=== PATIENT | female | born 1940 | race Two or more races ===

== ENCOUNTER → 2016-09-11 | Outpatient (CLI) | payer OTHER ==
[~2016-09-11] MED LIST: ASPI81TA27 PO; BACL20TA PO; LOSA50TA6 PO; PANT40TA2 PO; PIRO-23 PO; TRAM50TA2 PO
[2016-09-11 09:20] LABS: Basophils # (auto) 0.1 uL; Basophils % (auto) 0.8 % (0.0-2.0); Eosinophils # (auto) 0.2 uL; Eosinophils % (auto) 2.6 % (0.0-7.0); Hematocrit 42.7 % (36.0-46.0); Hemoglobin 14.1 g/dL (12.2-16.2); Lymphocytes # (auto) 3.6 uL; Lymphocytes % (auto) 49.8 % (10.0-50.0); Mean Corpuscular Hemoglobin 28.9 pg (28.0-32.0); Mean Corpuscular Volume 87.6 fL (80.0-100.0); Mean Platelet Volume 7.6 fL (7.4-10.4); Monocytes # (auto) 0.5 uL; Monocytes % (auto) 6.6 % (0.0-12.0); Neutrophils # (auto) 2.9 uL; Neutrophils % (auto) 40.2 % (37.0-80.0); Platelet Count (auto) 307 10^3/uL (140-450); Red Cell Distribution Width 14.6 % (11.6-16.0); White Blood Cell 7.3 10^3/uL (4.4-10.8)
[2016-09-11 09:26] LABS: Albumin 3.3 g/dL (3.4-5.0); Calcium 8.3 mg/dL (8.5-10.1); Potassium 4.1 mmol/L (3.5-5.1)
[2016-09-11 09:28] LABS: BUN/Creatinine Ratio 12.5
[2016-09-11 09:31] LABS: Bilirubin, Total 0.4 mg/dL (0.2-1.0); Total Protein 7.5 g/dL (6.4-8.2)
[2016-09-11 10:03] LABS: Urine Bilirubin Negative (Negative); Urine Blood Negative /uL (Negative); Urine Color Yellow (Yellow); Urine Glucose Normal (Normal); Urine Ketone Negative (Negative); Urine Mucus FEW (None Seen); Urine Nitrite Negative (Negative); Urine RBC <1 /hpf (0 - 4); Urine Squamous Epithelial Cell MOD /hpf (<5); Urine Urobilinogen Normal (Negative); Urine pH 6.5 (5.0-8.0)
== END | disposition home or self-care (01) ==
LOC: LAB 08:13
DX: I10 Essential (primary) hypertension (principal)
CPT/HCPCS: 36415; 80053; 80061; 81001; 84443; 85025

== ENCOUNTER 2017-02-25 07:39 | Day surgery (SDC) | payer OTHER ==
[2017-02-21 11:19] LABS: Basophils # (auto) 0.1 uL; Basophils % (auto) 0.9 % (0.0-2.0); Eosinophils # (auto) 0.1 uL; Eosinophils % (auto) 1.8 % (0.0-7.0); Hematocrit 44.2 % (36.0-46.0); Hemoglobin 14.7 g/dL (12.2-16.2); Lymphocytes # (auto) 3.4 uL; Lymphocytes % (auto) 44.5 % (10.0-50.0); Mean Corpuscular Hemoglobin 30.2 pg (28.0-32.0); Mean Corpuscular Hgb Conc. 33.4 g/dL (32.0-36.0); Mean Corpuscular Volume 90.4 fL (80.0-100.0); Mean Platelet Volume 6.8 fL (6.9-10.8); Monocytes # (auto) 0.6 uL; Monocytes % (auto) 7.9 % (0.0-12.0); Neutrophils # (auto) 3.5 uL; Neutrophils % (auto) 44.9 % (37.0-80.0); Nucleated Red Blood Cells % 0.1 %; Platelet Count (auto) 257 10^3/uL (140-450); Red Cell Distribution Width 14.5 % (11.8-14.3); White Blood Cell 7.7 10^3/uL (4.4-10.8)
[2017-02-21 11:36] LABS: INR 0.91 (0.9-1.15); Partial Thromboplastin Time 27.3 sec (22.64-33.71); Prothrombin Time 9.9 sec (9.37-12.3)
[~2017-02-25] VITALS: Ht 152.4 cm; Wt 77.6 kg
[~2017-02-25 07:39] MED LIST changes: -BACL20TA PO; +GABA100C PO; -PIRO-23 PO
[2017-02-25] MEDS ORDERED: LIDOCAINE VISCOUS 2% 15ML UD ONE (08:15)
[2017-02-25] MEDS ORDERED: SODIUM CHLORIDE LOCK 10 ML ONE (08:15)
[2017-02-25] MEDS ORDERED: diphenhdrAMINE HCL 50 MG/1 ML VL ONE (08:15)
[2017-02-25] MEDS ORDERED: MIDAZOLAM HCL 5 MG/ML-1ML VIAL ONE (08:15)
[2017-02-25] MEDS ORDERED: fentaNYL CITRATE 100 MCG/2 ML VL ONE (08:16)
[2017-02-25] MEDS ORDERED: FLUMAZENIL 0.1 MG/ML INJ 10ML MDV IV ONE (08:30)
[2017-02-25] MEDS ORDERED: NALOXONE HCL 0.4 MG/ML VIAL ONE (08:30)
[2017-02-25 09:52] VITALS: BP 114/69
== END 2017-02-25 10:05 | disposition home or self-care (01) ==
LOC: GI 07:39
PROVIDERS: ATTEND Internal Medicine Gastroenterology
DX: K29.50 Unspecified chronic gastritis without bleeding (principal); E66.9 Obesity, unspecified; Z90.710 Acquired absence of both cervix and uterus; Z90.721 Acquired absence of ovaries, unilateral; Z90.49 Acquired absence of other specified parts of digestive tract
CPT/HCPCS: 36415; 43239; 85025; 85610; 85730; J2250; J3010; J7030

== ENCOUNTER → 2017-06-05 | Outpatient (CLI) | payer OTHER ==
[~2017-06-05] MED LIST changes: +DOBUTamine 1000MCG/ML 250 ML IV ONE; +OPTISON 3ml Vial for INJ IV ONE
== END | disposition home or self-care (01) ==
LOC: XYW 11:19
PROVIDERS: ATTEND Internal Medicine Cardiovascular Disease
DX: R07.89 Other chest pain (principal)
CPT/HCPCS: 93017; 93306; J1250; Q9956

== ENCOUNTER → 2017-06-18 | Outpatient (CLI) | payer OTHER ==
[~2017-06-18] MED LIST changes: -DOBUTamine 1000MCG/ML 250 ML IV ONE; -OPTISON 3ml Vial for INJ IV ONE
[2017-06-18 14:14] LABS: Basophils # (auto) 0 uL; Basophils % (auto) 0.5 % (0.0-2.0); Eosinophils # (auto) 0.1 uL; Eosinophils % (auto) 1.2 % (0.0-7.0); Hematocrit 40.6 % (36.0-46.0); Hemoglobin 13.4 g/dL (12.2-16.2); Lymphocytes # (auto) 3.3 uL; Lymphocytes % (auto) 40.4 % (10.0-50.0); Mean Corpuscular Hemoglobin 29.3 pg (28.0-32.0); Mean Corpuscular Hgb Conc. 33.1 g/dL (32.0-36.0); Mean Corpuscular Volume 88.7 fL (80.0-100.0); Monocytes # (auto) 0.4 uL; Monocytes % (auto) 5.3 % (0.0-12.0); Neutrophils # (auto) 4.2 uL; Neutrophils % (auto) 52.6 % (37.0-80.0); Platelet Count (auto) 281 10^3/uL (140-450); Red Blood Cells 4.58 10^6/uL (4.0-5.20); Red Cell Distribution Width 14.9 % (11.8-14.3)
[2017-06-18 14:28] LABS: INR 0.92 (0.9-1.15); Partial Thromboplastin Time 25.8 sec (22.64-33.71)
[2017-06-18 15:09] LABS: Albumin 3.2 g/dL (3.4-5.0); BUN/Creatinine Ratio 17.5; Calcium 8.7 mg/dL (8.5-10.1); Potassium 3.8 mmol/L (3.5-5.1)
[2017-06-18 15:12] LABS: Bilirubin, Total 0.3 mg/dL (0.2-1.0); Total Protein 7.6 g/dL (6.4-8.2)
== END | disposition home or self-care (01) ==
LOC: LAB 13:33
PROVIDERS: ATTEND Family Medicine
DX: Z01.812 Encounter for preprocedural laboratory examination (principal); H02.403 Unspecified ptosis of bilateral eyelids
CPT/HCPCS: 36415; 80053; 85025; 85610; 85730

== ENCOUNTER → 2017-09-09 | Day surgery (SDC) | payer OTHER ==
[2017-09-06 14:17] LABS: Basophils # (auto) 0.1 uL; Basophils % (auto) 0.7 % (0.0-2.0); Eosinophils # (auto) 0.1 uL; Eosinophils % (auto) 1.6 % (0.0-7.0); Hematocrit 41.8 % (36.0-46.0); Lymphocytes # (auto) 3.2 uL; Lymphocytes % (auto) 42.9 % (10.0-50.0); Mean Corpuscular Hemoglobin 30.2 pg (28.0-32.0); Mean Corpuscular Hgb Conc. 33.6 g/dL (32.0-36.0); Mean Corpuscular Volume 89.8 fL (80.0-100.0); Monocytes # (auto) 0.4 uL; Monocytes % (auto) 5.7 % (0.0-12.0); Neutrophils # (auto) 3.6 uL; Neutrophils % (auto) 49.1 % (37.0-80.0); Nucleated Red Blood Cells % 0.2 %; Platelet Count (auto) 275 10^3/uL (140-450); Red Blood Cells 4.66 10^6/uL (4.0-5.20); Red Cell Distribution Width 14.3 % (11.8-14.3); White Blood Cell 7.4 10^3/uL (4.4-10.8)
[2017-09-06 14:20] LABS: INR 0.88 (0.9-1.15); Partial Thromboplastin Time 27.8 sec (22.64-33.71); Prothrombin Time 9.6 sec (9.37-12.3)
[~2017-09-09] VITALS: Ht 144.8 cm; Wt 78.9 kg
[~2017-09-09] MED LIST changes: +FLUMAZENIL 0.1 MG/ML INJ 10ML MDV IV ONE; +LIDOCAINE VISCOUS 2% 15ML UD ONE; +NALOXONE HCL 0.4 MG/ML VIAL ONE; +diphenhdrAMINE HCL 50 MG/1 ML VL ONE
[2017-09-09] MEDS: fentaNYL CITRATE 100 MCG/2 ML VL ONE ×2 (09:15→09:18)
[2017-09-09] MEDS: MIDAZOLAM HCL 5 MG/ML-1ML VIAL ONE ×2 (09:15→09:18)
[2017-09-09 09:57] VITALS: BP 127/77
== END | disposition home or self-care (01) ==
LOC: GI 08:05
PROVIDERS: ATTEND Internal Medicine Gastroenterology
DX: K29.50 Unspecified chronic gastritis without bleeding (principal); R13.10 Dysphagia, unspecified; E66.9 Obesity, unspecified; Z68.37 Body mass index [BMI] 37.0-37.9, adult; Z88.5 Allergy status to narcotic agent; Z88.8 Allergy status to other drugs, medicaments and biological substances; Z88.0 Allergy status to penicillin; Z90.710 Acquired absence of both cervix and uterus; Z90.721 Acquired absence of ovaries, unilateral; Z90.49 Acquired absence of other specified parts of digestive tract; I10 Essential (primary) hypertension; Z88.1 Allergy status to other antibiotic agents
CPT/HCPCS: 36415; 43239; 43248; 85025; 85610; 85730; 88305; 88342; J2250; J2310; J3010

== ENCOUNTER → 2018-07-21 | Outpatient (CLI) | payer OTHER ==
[~2018-07-21] MED LIST changes: -FLUMAZENIL 0.1 MG/ML INJ 10ML MDV IV ONE; -LIDOCAINE VISCOUS 2% 15ML UD ONE; +LOSA-46 PO; -LOSA50TA6 PO; -NALOXONE HCL 0.4 MG/ML VIAL ONE; -diphenhdrAMINE HCL 50 MG/1 ML VL ONE
[2018-07-21 10:27] LABS: Basophils # (auto) 0.1 uL; Basophils % (auto) 0.9 % (0.0-2.0); Eosinophils # (auto) 0.2 uL; Eosinophils % (auto) 2.5 % (0.0-7.0); Hematocrit 42.5 % (36.0-46.0); Hemoglobin 14.1 g/dL (12.2-16.2); Lymphocytes # (auto) 2.8 uL; Lymphocytes % (auto) 43.4 % (10.0-50.0); Mean Corpuscular Hemoglobin 29.7 pg (28.0-32.0); Mean Corpuscular Hgb Conc. 33.2 g/dL (32.0-36.0); Mean Corpuscular Volume 89.6 fL (80.0-100.0); Monocytes # (auto) 0.5 uL; Monocytes % (auto) 7.1 % (0.0-12.0); Neutrophils % (auto) 46.1 % (37.0-80.0); Nucleated Red Blood Cells % 0.2 %; Platelet Count (auto) 278 10^3/uL (140-450); Red Blood Cells 4.74 10^6/uL (4.0-5.20); Red Cell Distribution Width 14.4 % (11.8-14.3); White Blood Cell 6.5 10^3/uL (4.4-10.8)
[2018-07-21 10:58] LABS: Albumin 3.3 g/dL (3.4-5.0); Calcium 8.8 mg/dL (8.5-10.1); Potassium 4.1 mmol/L (3.5-5.1)
[2018-07-21 11:05] LABS: BUN/Creatinine Ratio 15.3; Bilirubin, Total 0.4 mg/dL (0.2-1.0); Total Protein 7.6 g/dL (6.4-8.2)
== END | disposition home or self-care (01) ==
LOC: LAB 09:33
PROVIDERS: ATTEND Internal Medicine
DX: Z12.11 Encounter for screening for malignant neoplasm of colon (principal); I10 Essential (primary) hypertension; Z83.3 Family history of diabetes mellitus
CPT/HCPCS: 36415; 80053; 80061; 82274; 82306; 83036; 84443; 85025

== ENCOUNTER → 2019-10-08 | Emergency (ER) | payer OTHER ==
[~2019-10-08] VITALS: Ht 152.4 cm; Wt 77.1 kg
[~2019-10-08] MED LIST changes: +ASPI-543 PO; -ASPI81TA27 PO; -LOSA-46 PO; +LOSA-69 PO
[2019-10-08 20:10] VITALS: BP 150/87
== END | disposition home or self-care (01) ==
LOC: ER 18:14
DX: M48.02 Spinal stenosis, cervical region (principal); Z90.49 Acquired absence of other specified parts of digestive tract; Z90.710 Acquired absence of both cervix and uterus; Z87.311 Personal history of (healed) other pathological fracture
CPT/HCPCS: 72125

== ENCOUNTER 2020-08-14 14:47 | Emergency (ER) | payer OTHER ==
[~2020-08-14] VITALS: Ht 152.4 cm; Wt 79.8 kg
[2020-08-14 14:50] VITALS: BP 183/78
[2020-08-14 15:30] LABS: Basophils # (auto) 0.1 10 ^3/uL (0-0.2); Basophils % (auto) 0.7 % (0.0-2.0); Eosinophils # (auto) 0.1 10 ^3/uL (0-0.8); Eosinophils % (auto) 1.4 % (0.0-7.0); Hematocrit 40.6 % (36.0-46.0); Hemoglobin 13.8 g/dL (12.2-16.2); Lymphocytes # (auto) 2.2 10 ^3/uL (0.4-5.4); Lymphocytes % (auto) 27.5 % (10.0-50.0); Mean Corpuscular Hemoglobin 30.4 pg (28.0-32.0); Mean Corpuscular Hgb Conc. 34.1 g/dL (32.0-36.0); Mean Corpuscular Volume 89.2 fL (80.0-100.0); Monocytes # (auto) 0.4 10 ^3/uL (0-1.3); Monocytes % (auto) 4.4 % (0.0-12.0); Neutrophils # (auto) 5.3 10 ^3/uL (1.6-8.6); Nucleated Red Blood Cells % 0.2 %; Platelet Count (auto) 265 10^3/uL (140-450); Red Blood Cells 4.55 10^6/uL (4.0-5.20); Red Cell Distribution Width 14.6 % (11.8-14.3)
[2020-08-14 15:52] LABS: Alanine Aminotransferase 20 U/L (13-56); Albumin 3.5 g/dL (3.4-5.0); Anion Gap 10 (5-15); Aspartate Aminotransferase 20 U/L (15-37); BUN/Creatinine Ratio 18.5; Blood Urea Nitrogen 12 mg/dL (7-18); Calcium 8.4 mg/dL (8.5-10.1); Carbon Dioxide 22 mmol/L (21-32); Chloride 107 mmol/L (98-107); GFR African American 113 mL/min; GFR Non-African American 93 mL/min; Glucose 121 mg/dL (74-106); Potassium 3.9 mmol/L (3.5-5.1); Sodium 139 mmol/L (136-145)
[2020-08-14 15:57] LABS: Alkaline Phosphatase 92 U/L (45-117); Bilirubin, Total 0.2 mg/dL (0.2-1.0)
[2020-08-14 16:24] LABS: Urine Bacteria NONE SEEN /hpf (None Seen); Urine Blood Negative /uL (Negative); Urine Specific Gravity 1.006 (1.001-1.035); Urine WBC <1 /hpf (0 - 5)
== END 2020-08-14 17:24 | disposition home or self-care (01) ==
LOC: ER 14:47
DX: R07.89 Other chest pain (principal); R42 Dizziness and giddiness; I10 Essential (primary) hypertension; F41.9 Anxiety disorder, unspecified; Z90.49 Acquired absence of other specified parts of digestive tract; Z90.710 Acquired absence of both cervix and uterus; Z79.82 Long term (current) use of aspirin; Z88.1 Allergy status to other antibiotic agents; Z88.0 Allergy status to penicillin; Z20.822 Contact with and (suspected) exposure to COVID-19
CPT/HCPCS: 36415; 70450; 71045; 80053; 81001; 84484; 85025; 87426; 93005

== ENCOUNTER → 2020-08-17 | Outpatient (CLI) | payer OTHER ==
[2020-08-17 09:28] LABS: Basophils # (auto) 0.1 10 ^3/uL (0-0.2); Basophils % (auto) 1.2 % (0.0-2.0); Eosinophils # (auto) 0.3 10 ^3/uL (0-0.8); Eosinophils % (auto) 4.5 % (0.0-7.0); Hematocrit 41.1 % (36.0-46.0); Hemoglobin 13.9 g/dL (12.2-16.2); Mean Corpuscular Hemoglobin 30.3 pg (28.0-32.0); Mean Corpuscular Hgb Conc. 33.7 g/dL (32.0-36.0); Mean Corpuscular Volume 89.8 fL (80.0-100.0); Monocytes # (auto) 0.4 10 ^3/uL (0-1.3); Monocytes % (auto) 6.6 % (0.0-12.0); Neutrophils # (auto) 2.8 10 ^3/uL (1.6-8.6); Neutrophils % (auto) 42.7 % (37.0-80.0); Nucleated Red Blood Cells % 0.1 %; Platelet Count (auto) 278 10^3/uL (140-450); Red Blood Cells 4.58 10^6/uL (4.0-5.20); Red Cell Distribution Width 14.7 % (11.8-14.3); White Blood Cell 6.6 10^3/uL (4.4-10.8)
[2020-08-17 10:21] LABS: Albumin 3.4 g/dL (3.4-5.0); Calcium 8.9 mg/dL (8.5-10.1); Potassium 4.4 mmol/L (3.5-5.1)
[2020-08-17 10:25] LABS: BUN/Creatinine Ratio 20.6; Bilirubin, Total 0.5 mg/dL (0.2-1.0); Total Protein 7.7 g/dL (6.4-8.2)
== END | disposition home or self-care (01) ==
LOC: LAB 09:10
PROVIDERS: ATTEND Internal Medicine
DX: Z12.11 Encounter for screening for malignant neoplasm of colon (principal); Z00.00 Encounter for general adult medical examination without abnormal findings; I10 Essential (primary) hypertension; E55.9 Vitamin D deficiency, unspecified
CPT/HCPCS: 36415; 80053; 80061; 82274; 82306; 84439; 84443; 85025

== ENCOUNTER → 2021-06-08 | Outpatient (CLI) | payer OTHER ==
[2021-06-08 10:50] LABS: Basophils # (auto) 0.1 10 ^3/uL (0-0.2); Basophils % (auto) 2.2 % (0.0-2.0); Eosinophils # (auto) 0.1 10 ^3/uL (0-0.8); Eosinophils % (auto) 1.9 % (0.0-7.0); Hematocrit 39.9 % (36.0-46.0); Hemoglobin 13.4 g/dL (12.2-16.2); Lymphocytes % (auto) 39.7 % (10.0-50.0); Mean Corpuscular Hemoglobin 29.8 pg (28.0-32.0); Mean Corpuscular Hgb Conc. 33.6 g/dL (32.0-36.0); Mean Corpuscular Volume 88.7 fL (80.0-100.0); Monocytes # (auto) 0.3 10 ^3/uL (0-1.3); Monocytes % (auto) 5.9 % (0.0-12.0); Neutrophils # (auto) 2.5 10 ^3/uL (1.6-8.6); Neutrophils % (auto) 50.3 % (37.0-80.0); Nucleated Red Blood Cells % 0.1 %; Red Cell Distribution Width 14.1 % (11.8-14.3); White Blood Cell 4.9 10^3/uL (4.4-10.8)
[2021-06-08 11:08] LABS: Urine Bacteria NONE SEEN /hpf (None Seen); Urine Blood Negative /uL (Negative); Urine Specific Gravity 1.014 (1.001-1.035); Urine WBC <1 /hpf (0 - 5)
[2021-06-08 11:58] LABS: Potassium 3.8 mmol/L (3.5-5.1)
[2021-06-08 12:17] LABS: Albumin 3.3 g/dL (3.4-5.0); BUN/Creatinine Ratio 15.3; Bilirubin, Total 0.5 mg/dL (0.2-1.0); Calcium 8.5 mg/dL (8.5-10.1); Total Protein 7.8 g/dL (6.4-8.2)
== END | disposition home or self-care (01) ==
LOC: LAB 09:49
PROVIDERS: ATTEND Internal Medicine
DX: I10 Essential (primary) hypertension (principal)
CPT/HCPCS: 36415; 80053; 80061; 81001; 84439; 84443; 85025; 85652

== ENCOUNTER → 2022-03-16 | Outpatient (CLI) | payer OTHER ==
[2022-03-16 13:46] LABS: Basophils # (auto) 0.1 10 ^3/uL (0-0.2); Basophils % (auto) 0.8 % (0.0-2.0); Eosinophils # (auto) 0.1 10 ^3/uL (0-0.8); Eosinophils % (auto) 1.1 % (0.0-7.0); Lymphocytes % (auto) 39.6 % (10.0-50.0); Mean Corpuscular Hemoglobin 29.6 pg (28.0-32.0); Mean Corpuscular Hgb Conc. 33.3 g/dL (32.0-36.0); Mean Corpuscular Volume 88.8 fL (80.0-100.0); Monocytes # (auto) 0.5 10 ^3/uL (0-1.3); Monocytes % (auto) 6.8 % (0.0-12.0); Neutrophils % (auto) 51.7 % (37.0-80.0); Nucleated Red Blood Cells % 0.2 %; Red Blood Cells 4.39 10^6/uL (4.0-5.20); Red Cell Distribution Width 14.2 % (11.8-14.3); White Blood Cell 7.7 10^3/uL (4.4-10.8)
[2022-03-16 14:21] LABS: Albumin 3.4 g/dL (3.4-5.0); Calcium 8.7 mg/dL (8.5-10.1); Potassium 4.2 mmol/L (3.5-5.1)
[2022-03-16 14:25] LABS: BUN/Creatinine Ratio 15.1; Bilirubin, Total 0.3 mg/dL (0.2-1.0); Total Protein 7.6 g/dL (6.4-8.2)
== END | disposition home or self-care (01) ==
LOC: LAB 13:26
PROVIDERS: ATTEND Internal Medicine
DX: F33.1 Major depressive disorder, recurrent, moderate (principal)
CPT/HCPCS: 36415; 80053; 84439; 84443; 85025

== ENCOUNTER → 2022-09-17 | Outpatient (CLI) | payer OTHER ==
[2022-09-17 10:13] LABS: Basophils # (auto) 0.1 10 ^3/uL (0-0.2); Basophils % (auto) 0.9 % (0.0-2.0); Eosinophils # (auto) 0.3 10 ^3/uL (0-0.8); Eosinophils % (auto) 3.8 % (0.0-7.0); Hematocrit 41.4 % (36.0-46.0); Hemoglobin 13.7 g/dL (12.2-16.2); Lymphocytes # (auto) 2.9 10 ^3/uL (0.4-5.4); Lymphocytes % (auto) 42.4 % (10.0-50.0); Mean Corpuscular Hemoglobin 29.4 pg (28.0-32.0); Mean Corpuscular Hgb Conc. 33.1 g/dL (32.0-36.0); Mean Corpuscular Volume 88.6 fL (80.0-100.0); Monocytes # (auto) 0.5 10 ^3/uL (0-1.3); Monocytes % (auto) 7.5 % (0.0-12.0); Neutrophils # (auto) 3.1 10 ^3/uL (1.6-8.6); Neutrophils % (auto) 45.4 % (37.0-80.0); Nucleated Red Blood Cells % 0.1 %; Red Blood Cells 4.67 10^6/uL (4.0-5.20); Red Cell Distribution Width 13.4 % (11.8-14.3); White Blood Cell 6.8 10^3/uL (4.4-10.8)
[2022-09-17 10:54] LABS: Urine Bacteria NONE SEEN /hpf (None Seen); Urine Blood Negative /uL (Negative); Urine Specific Gravity 1.011 (1.001-1.035); Urine WBC <1 /hpf (0 - 5)
[2022-09-17 11:03] LABS: Albumin 3.2 g/dL (3.4-5.0); Calcium 9.2 mg/dL (8.5-10.1); Potassium 4.1 mmol/L (3.5-5.1)
[2022-09-17 11:11] LABS: BUN/Creatinine Ratio 22.5 (10.0-20.0); Bilirubin, Total 0.3 mg/dL (0.2-1.0); Total Protein 7.7 g/dL (6.4-8.2)
[2022-09-17 12:11] LABS: Free T4 (Free Thyroxine) 0.96 ng/dL (0.89-1.76)
== END | disposition home or self-care (01) ==
LOC: LAB 09:35
PROVIDERS: ATTEND Internal Medicine
DX: I10 Essential (primary) hypertension (principal); E55.9 Vitamin D deficiency, unspecified
CPT/HCPCS: 36415; 80053; 80061; 81001; 82306; 82607; 84439; 84443; 85025; 85652

== ENCOUNTER 2024-10-10 10:46 | Inpatient (IN) | payer OTHER ==
[~2024-10-10] VITALS: Ht 149.9 cm; Wt 75.5 kg
[~2024-10-10 10:46] MED LIST changes: +AMLO1TAB21 PO; -ASPI-543 PO; -GABA100C PO; +IBUP200C14 PO; -LOSA-69 PO; -TRAM50TA2 PO
--- NOTE | 2024-10-10 11:04 | ECG ---
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
--- NOTE | 2024-10-10 11:27 | ED.PDOC ---
GI ASSESSMENT HPI Comments 83 year old female presents to the ED with chief complaint of abdominal pain. Patient reports that she had been experiencing periumbilical abdominal pain that radiated to her epigastric region along with associated nausea for the past 3 days. Patient relays that she has had her gallbladder removed already and an umbilical hernia repaired. Patient denies any vomiting, diarrhea, dysuria, hematuria, chest pain, SOB, fever, chills, or constipation. Chief Complaint: Abdominal Pain Time Seen by MD: 11:02 Reviewed Notes: Nurses Notes, Medications, Allergies Allergies: Coded Allergies: Meperidine (Unverified Allergy, Intermediate, angioedema, rash, 10/11/23) Penicillins (Unverified Allergy, Intermediate, angioedema, rash, 10/11/23) Acetaminophen (Unverified Allergy, Mild, pruritus, 10/11/23) Cephalexin (Verified Allergy, Unknown, 09/06/17) Hydrocodone (Verified Allergy, Unknown, 09/06/17) Home Meds Reported Medications Ibuprofen (Advil) 200 Mg Cap, 200 MG PO PRN, CAP 10/11/23 Amlodipine Besylate (Amlodipine Besylate) 2.5 Mg Tab, 2.5 MG PO PRN, TAB Take if BP exceeds 140/90 10/11/23 Pantoprazole Sodium Sesquihydr (Protonix) 40 Mg Tab, 40 MG PO DAILY, #30 TAB 02/13/16 Information Source: Patient Mode of Arrival: Ambulatory Timing: Days Duration: Since onset Prehospital treatment: None Quality: Aching Vomitus: None Stool: Normal Severity: Moderate Recent: None Recent Hx of: None Pain Location: Epigastric, Periumbilical Modifying Factors: Nothing Associated sign and symptoms: Nausea, Abdominal Pain Past Medical History PAST MEDICAL HISTORY: Anxiety, HTN Surgical History: Cholecystectomy, Hernia Repair, Hysterectomy Surgical History (Other): Oophorectomy 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 History Family History Family History: Reviewed,noncontributory to illness Social History Smoker: Non-Smoker Alcohol: Occasionally Drugs: Denies Drug Use Lives In: Home Constitutional: denies: chills, diaphoresis, fatigue, fever, malaise, sweats, weakness, others EENTM: denies: blurred vision, double vision, ear bleeding, ear discharge, ear drainage, ear pain, ear ringing, eye pain, eye redness, hearing loss, mouth pain, mouth swelling, nasal discharge, nose bleeding, nose congestion, nose pain, photophobia, tearing, throat pain, throat swelling, voice changes, others Respiratory: denies: cough, hemoptysis, orthopnea, SOB at rest, shortness of breath, SOB with excertion, stridor, wheezing, others Cardiovascular: denies: chest pain, dizzy spells, diaphoresis, Dyspnea on exertion, edema, irregular heart beat, left arm pain, lightheadedness, palpitations, PND, syncope, others Gastrointestinal: reports: abdominal pain, nausea; denies: abdomen distended, blood streaked bowels, constipated, diarrhea, dysphagia, difficulty swallowing, hematemesis, melena, poor appetite, poor fluid intake, rectal bleeding, rectal pain, vomiting, others Genitourinary: denies: abnormal vagina bleeding, burning, dyspareunia, dysuria, flank pain, frequency, hematuria, incontinence, pain, , vagina discharge, urgency, others Neurological: denies: dizziness, fainting, headache, left sided numbness, left sided weakness, numbness, paresthesia, pre-existing deficit, right sided numbness, right sided weakness, seizure, speech problems, tingling, tremors, weakness, others Musculoskeletal: denies: back pain, gout, joint pain, joint swelling, muscle pain, muscle stiffness, neck pain, others Integumetry: denies: bruises, change in color, change in hair/nails, dryness, laceration, lesions, lumps, rash, wounds, others Allergic/Immunocompromised: denies: Difficulty Healing, Frequent Infections, Hives, Itching, others Hematologic/Lymphatic: denies: anemia, blood clots, easy bleeding, easy bruising, swollen glands, others Endocrine: denies: excessive hunger, excessive sweating, excessive thirst, excessive urination, flushing, intolerance to cold, intolerance to heat, unexplained weight gain, unexplained weight loss, others Psychiatric: denies: anxiety, bipolar disorder, depression, hopeless, panic disorder, schizophrenia, sleepless, suicidal, others All Other Systems: Reviewed and Negative Physical Exam General Appearance: Moderate Distress, Obese HEENT: Normal ENT Inspection, PERRL/EOMI Neck: Full Range of Motion, Non-Tender, Normal, Normal Inspection Respiratory: Chest Non-Tender, Lungs Clear, No Accessory Muscle Use, No Respiratory Distress, Normal Breath Sounds Cardiovascular: No Edema, No JVD, No Murmur, No Gallop, Normal Peripheral Pulses, Regular Rate/Rhythm Breast Exam: Deferred Gastrointestinal: Diffuse, Guarding, No Organomegaly, No Pulsatile Mass, Normal Bowel Sounds, RLQ, Soft, Tenderness Genitalia: Deferred Pelvic: Deferred Rectal: Deferred Extremities: No calf tenderness, Normal capillary refill, Normal inspection, Normal range of motion, Non-tender, No pedal edema Musculoskeletal : Apperance: Normal Neurologic: Alert, ladler II-XII nml as Tested, No Motor Deficits, Normal Affect, Normal Mood, No Sensory Deficits Cerebellar Function: Normal Reflexes: Normal Skin: Dry, Normal Color, Warm Peripheral Pulses: 1+ carotid (R), 1+ carotid (L) Lymphatic: No Adenopathy EKG EKG : Pulse Rate (adult): 77 [place]: Normal Cardiac Rhythm: NSR Block: None Hypertrophy: None ST: Normal Was a procedure done? Was a procedure done?: No GI differential Dx Differential Diagnosis: Appendicitis, Constipation, Diverticular disease, Gastritis/PUD, Gastroenteritis, Inflammatory BD, Ischemic Bowel, Pancreatitis, UTI, Urolithiasis, Dehydration, Diabetes/ DKA, Drug toxicity, Electrolyte Imbalance, Food Poisoning, Hypovolemia, Ischemic Bowel, Mass, Anemia X-Ray, Labs, Meds, VS Vital Signs Date Time Temp Pulse Resp B/P (MAP) Pulse Ox O2 Delivery O2 Flow Rate FiO2 10/10/24 12:25 83 16 132/55 10/10/24 12:03 69 19 98 Room Air* 0 21 10/10/24 11:55 63 16 153/72 10/10/24 11:39 98.1 63 16 153/72 (99) 97 98.1 10/10/24 11:39 63 16 97 Room Air 10/10/24 11:28 77 10/10/24 11:01 98.3 82 18 151/76 (101) 97 98.3 10/10/24 10:55 77 Lab Test 10/10/24 11:51 10/10/24 11:05 Range/Units White Blood Count 7.4 4.4-10.8 10^3/uL Red Blood Count 4.84 4.0-5.20 10^6/uL Hemoglobin 14.3 12.2-16.2 g/dL Hematocrit 43.0 36.0-46.0 % Mean Corpuscular Volume 89.0 80.0-100.0 fL Mean Corpuscular Hemoglobin 29.5 28.0-32.0 pg Mean Corpuscular Hemoglobin Concent 33.2 32.0-36.0 g/dL Red Cell Distribution Width 14.7 H 11.8-14.3 % Platelet Count 265 140-450 10^3/uL Mean Platelet Volume 6.6 L 6.9-10.8 fL Neutrophils (%) (Auto) 54.2 37.0-80.0 % Lymphocytes (%) (Auto) 37.1 10.0-50.0 % Monocytes (%) (Auto) 5.8 0.0-12.0 % Eosinophils (%) (Auto) 1.5 0.0-7.0 % Basophils (%) (Auto) 1.4 0.0-2.0 % Neutrophils # (Auto) 4.0 1.6-8.6 10 ^3/uL Lymphocytes # (Auto) 2.7 0.4-5.4 10 ^3/uL Monocytes # (Auto) 0.4 0-1.3 10 ^3/uL Eosinophils # (Auto) 0.1 0-0.8 10 ^3/uL Basophils # (Auto) 0.1 0-0.2 10 ^3/uL Nucleated Red Blood Cells 0.1 % Prothrombin Time 10.2 9.3-11.8 sec Prothrombin Time INR 0.96 0.9-1.15 Activated Partial Thromboplast Time 22.2 L 24.5-34.5 SEC Sodium Level 136 136-145 mmol/L Potassium Level 4.6 3.5-5.1 mmol/L Chloride Level 102 98-107 mmol/L Carbon Dioxide Level 26 20-31 mmol/L Anion Gap 8 5-15 Blood Urea Nitrogen 9 9-23 mg/dL Creatinine 0.66 0.550-1.02 mg/dL Glomerular Filtration Rate Calc 86 >90 mL/min BUN/Creatinine Ratio 13.6 10.0-20.0 Serum Glucose 109 H 74-106 mg/dL Calcium Level 9.1 8.7-10.4 mg/dL Magnesium Level 2.1 1.6-2.6 mg/dL Total Bilirubin 0.6 0.2-1.0 mg/dL Aspartate Amino Transferase (AST) 15 13-40 U/L Alanine Aminotransferase (ALT) 10 7-40 U/L Alkaline Phosphatase 100 46-116 U/L Total Protein 7.8 5.7-8.2 g/dL Albumin 4.2 3.2-4.8 g/dL Lipase 34 12-53 U/L Urine Color Light-yellow Yellow Urine Clarity Clear Clear Urine pH 7.5 5.0-9.0 Urine Specific [place] 1.010 1.001-1.035 Urine Protein Negative Negative Urine Ketones Negative Negative Urine Blood Negative Negative /uL Urine Nitrite Negative Negative Urine Bilirubin Negative Negative Urine Urobilinogen Normal Negative mg/dL Urine Leukocyte Esterase Negative Negative /uL Urine RBC 1 0 - 4 /hpf Urine Microscopic WBC < 1 0-5 /HPF Urine Squamous Epithelial Cells Few <5 /hpf Urine Bacteria None seen None Seen /hpf Urine Glucose Normal Normal mg/dL Current Medications Medications (Trade) Dose Ordered Sig/Juan José Route Start Time Stop Time Status Last Admin Ondansetron HCl (Zofran) 4 mg ONCE ONCE IV 10/10/24 11:30 10/10/24 11:34 DC 10/10/24 11:55 Morphine Sulfate 2 mg ONCE ONCE IV 10/10/24 11:30 10/10/24 11:34 DC 10/10/24 11:55 Sodium Chloride 1,000 ml @ 150 mls/hr Q6H40M ONCE IV 10/10/24 11:30 10/10/24 18:09 10/10/24 11:54 Chest XR: FINDINGS: LUNGS AND PLEURAL SPACES: Unremarkable. No consolidation. No pneumothorax. HEART: Unremarkable. No cardiomegaly. MEDIASTINUM: Unremarkable. Normal mediastinal contour. BONES/JOINTS: Unremarkable. No acute fracture. OTHER FINDINGS: . IMPRESSION: No acute cardiopulmonary process. Abd/Pel W/ IV Con: FINDINGS: LUNG BASES: Partially visualized multiple pulmonary nodules. Metastasis can not be excluded. No consolidation. ABDOMEN: LIVER: Unremarkable. No mass. GALLBLADDER AND BILE DUCTS: Unremarkable. No calcified stones. No ductal dilation. PANCREAS: Unremarkable. No mass. No ductal dilation. SPLEEN: Unremarkable. No splenomegaly. ADRENALS: Unremarkable. No mass. KIDNEYS AND URETERS: Unremarkable. No solid mass. No hydronephrosis. STOMACH AND BOWEL: Colonic diverticulosis without acute diverticulitis. No obstruction. PELVIS: APPENDIX: No findings to suggest acute appendicitis. BLADDER: Unremarkable. No mass. REPRODUCTIVE: Unremarkable as visualized. ABDOMEN and PELVIS: INTRAPERITONEAL SPACE: Unremarkable. No free air. No significant fluid collection. BONES/JOINTS: Mild superior endplate compression deformity of L1 vertebral body, likely chronic. No dislocation. SOFT TISSUES: Unremarkable. VASCULATURE: Unremarkable. No abdominal aortic aneurysm. LYMPH NODES: Unremarkable. No enlarged lymph nodes. OTHER FINDINGS: . . . IMPRESSION: 1. Partially visualized multiple pulmonary nodules. Metastasis can not be excluded. 2. Colonic diverticulosis without acute diverticulitis. X-Ray, Labs, Meds, VS Comment COURSE IN THE EMERGENCY DEPARTMENT EVENTFUL PATIENT CAME IN COMPLAINING OF DIFFUSE THE ABDOMINAL PAIN MOSTLY: TO THE UMBILICAL IN THE RIGHT LOWER QUADRANT CHEST X-RAY IS NORMAL THE EKG SHOWS NORMAL SINUS RHYTHM AT 77 CT ABDOMEN AND PELVIS SHOWS MOSTLY PULMONARY NODULES DIVERTICULOSIS BUT NO OTHER PATHOLOGY CBC NORMAL URINE NEGATIVE INR 0.96 CMP NEGATIVE MAGNESIUM 2.1 LIPASE 34 BECAUSE OF THE PULMONARY NODULE THAT COULD SUGGEST METASTASIS PRIMARY NEED TO BE FOUND PATIENT WILL BE ADMITTED FOR FURTHER CARE Images Reviewed?: Images reviewed and evaluated by me Time of 1ST Reevaluation: 12:02 Reevaluation 1ST: Unchanged Time of 2ND Reevaluation: 14:49 Reevaluation 2ND: Unchanged Patient Education/Counseling: Diagnosis, Treatment, Prognosis Family Education/Counseling: Diagnosis, Treatment, Prognosis, No Family Present Departure 1 Departure Time of Disposition: 14:52 Impression: Primary Impression: Diffuse abdominal pain Additional Impressions: Pulmonary nodules/lesions, multiple Diverticulosis Ruled Out: Appendicitis, Diverticulitis of intestine, Acute pancreatitis Disposition: 09 ADMITTED INPATIENT Admit to: Med Surg Condition: Fair Critical Care Note Critical Care Time?: No Stability Stability form required: Yes Unstable for transfer: Requires medication (Requires Med for stabilization) Heart Score Heart Score: Heart Score Response (Comments) Value History N/A 0 EKG Normal 0 Age >65 2 Risk Factors 1 or 2 risk factors 1 Troponin N/A 0 Total 3 I personally scribed for ANUJ SAMANO MD ([email or web address]) on 10/10/24 at 11:27. Elis ctronically submitted by Luis Dozier ([email or web address]). I personally scribed for ANUJ SAMANO MD ([email or web address]) on 10/10/24 at 11:28. El ectronically submitted by Luis Dozier ([email or web address]). I personally scribed for ANUJ SAMANO MD ([email or web address]) on 10/10/24 at 13:05. E lectronically submitted by Luis Dozier ([email or web address]). I personally scribed for ANUJ SAMANO MD ([email or web address]) on 10/10/24 at 14:17. Electronically submitted by Luis Dozier ([email or web address]). ANUJ SAMANO MD October 10, 2024 11:27
[2024-10-10] MEDS: SODIUM CHLORIDE 0.9% 1,000 ML IV ONE (11:54)
[2024-10-10] MEDS: ONDANSETRON HCL 4 MG/2 ML VIAL IV ONE (11:55)
[2024-10-10] MEDS: MORPHINE SULFATE 4 MG/ML SYR/VIAL IV ONE (11:55)
[2024-10-10 12:00] LABS: Urine Bacteria None Seen /hpf (None Seen)
[2024-10-10 12:03] VITALS: PULSE 69; RESP 19; O2SAT 98
[2024-10-10 12:03] LABS: Basophils # (auto) 0.1 10 ^3/uL (0-0.2); Basophils % (auto) 1.4 % (0.0-2.0); Eosinophils # (auto) 0.1 10 ^3/uL (0-0.8); Eosinophils % (auto) 1.5 % (0.0-7.0); Hemoglobin 14.3 g/dL (12.2-16.2); Lymphocytes # (auto) 2.7 10 ^3/uL (0.4-5.4); Lymphocytes % (auto) 37.1 % (10.0-50.0); Mean Corpuscular Hemoglobin 29.5 pg (28.0-32.0); Mean Corpuscular Hgb Conc. 33.2 g/dL (32.0-36.0); Monocytes # (auto) 0.4 10 ^3/uL (0-1.3); Monocytes % (auto) 5.8 % (0.0-12.0); Neutrophils % (auto) 54.2 % (37.0-80.0); Nucleated Red Blood Cells % 0.1 %; Platelet Count (auto) 265 10^3/uL (140-450); Red Blood Cells 4.84 10^6/uL (4.0-5.20); Red Cell Distribution Width 14.7 % (11.8-14.3); White Blood Cell 7.4 10^3/uL (4.4-10.8)
[2024-10-10 12:10] LABS: Urine Blood Negative /uL (Negative); Urine Clarity Clear (Clear); Urine Color Light-Yellow (Yellow); Urine Protein, UAD Negative (Negative); Urine Squamous Epithelial Cell FEW /hpf (<5); Urine Urobilinogen Normal (Negative); Urine WBC < 1 /HPF (0-5); Urine pH 7.5 (5.0-9.0)
[2024-10-10 12:17] LABS: INR 0.96 (0.9-1.15); Partial Thromboplastin Time 22.2 SEC (24.5-34.5); Prothrombin Time 10.2 sec (9.3-11.8)
[2024-10-10 12:20] LABS: Alanine Aminotransferase 10 U/L (7-40); Albumin 4.2 g/dL (3.2-4.8); Alkaline Phosphatase 100 U/L (46-116); Anion Gap 8 (5-15); Aspartate Aminotransferase 15 U/L (13-40); BUN/Creatinine Ratio 13.6 (10.0-20.0); Bilirubin, Total 0.6 mg/dL (0.2-1.0); Blood Urea Nitrogen 9 mg/dL (9-23); Calcium 9.1 mg/dL (8.7-10.4); Carbon Dioxide 26 mmol/L (20-31); Chloride 102 mmol/L (98-107); Lipase 34 U/L (12-53); Magnesium 2.1 mg/dL (1.6-2.6); Potassium 4.6 mmol/L (3.5-5.1); Sodium 136 mmol/L (136-145); Total Protein 7.8 g/dL (5.7-8.2)
[2024-10-10 12:30] LABS: Glucose 109 mg/dL (74-106)
[2024-10-10] MEDS: IOHEXOL 300 MG/ML 100ML BOTTLE IJ ONE (12:42)
--- NOTE | 2024-10-10 13:01 | DVH ---
EXAM: XR Chest, 2 Views CLINICAL INDICATION: Acute abdominal pain TECHNIQUE: Frontal and lateral views of the chest. COMPARISON: None FINDINGS: LUNGS AND PLEURAL SPACES: Unremarkable. No consolidation. No pneumothorax. HEART: Unremarkable. No cardiomegaly. MEDIASTINUM: Unremarkable. Normal mediastinal contour. BONES/JOINTS: Unremarkable. No acute fracture. OTHER FINDINGS: . IMPRESSION: No acute cardiopulmonary process.
--- NOTE | 2024-10-10 13:20 | DVH ---
EXAM: CT Abdomen and Pelvis With Intravenous Contrast CLINICAL INDICATION: Acute right-sided and diffuse abdominal pain TECHNIQUE: Axial computed tomography images of the abdomen and pelvis with intravenous contrast. is CT exam was performed using one or more of the following dose reduction techniques: automated exp osure control, adjustment of the mA and/or kV according to patient size, and/or use of iterative quique nstruction technique. CONTRAST: RADIATION DOSE: CTDIvol = 20.74 mGy, DLP = 976.31 mGy-cm COMPARISON: None FINDINGS: LUNG BASES: Partially visualized multiple pulmonary nodules. Metastasis can not be excluded. No c onsolidation. ABDOMEN: LIVER: Unremarkable. No mass. GALLBLADDER AND BILE DUCTS: Unremarkable. No calcified stones. No ductal dilation. PANCREAS: Unremarkable. No mass. No ductal dilation. SPLEEN: Unremarkable. No splenomegaly. ADRENALS: Unremarkable. No mass. KIDNEYS AND URETERS: Unremarkable. No solid mass. No hydronephrosis. STOMACH AND BOWEL: Colonic diverticulosis without acute diverticulitis. No obstruction. PELVIS: APPENDIX: No findings to suggest acute appendicitis. BLADDER: Unremarkable. No mass. REPRODUCTIVE: Unremarkable as visualized. ABDOMEN and PELVIS: INTRAPERITONEAL SPACE: Unremarkable. No free air. No significant fluid collection. BONES/JOINTS: Mild superior endplate compression deformity of L1 vertebral body, likely chronic. N o dislocation. SOFT TISSUES: Unremarkable. VASCULATURE: Unremarkable. No abdominal aortic aneurysm. LYMPH NODES: Unremarkable. No enlarged lymph nodes. OTHER FINDINGS: . . . IMPRESSION: 1. Partially visualized multiple pulmonary nodules. Metastasis can not be excluded. 2. Colonic diverticulosis without acute diverticulitis.
[2024-10-10 15:27] VITALS: PULSE 73; RESP 16; O2SAT 94
[2024-10-10] MEDS ORDERED: PATIENTS OWN MEDICATION (Amlodipine Besylate 2.5 MG) PO SCH (16:30)
[2024-10-10] MEDS: PANTOPRAZOLE 40 MG/10 ML VIAL INJ IV ONE (16:49)
[2024-10-10] MEDS: KETOROLAC TROMETH 30 MG/ML 1ML VIAL IV ONE (16:50)
[2024-10-10] MEDS: ONDANSETRON HCL 4 MG/2 ML VIAL IV PRN (16:50)
[2024-10-10] MEDS: DICYCLOMINE HCL 10 MG CAP PO ONE (16:50)
[2024-10-10] MEDS: SODIUM CHLORIDE 0.9% 1,000 ML IV SCH (16:51)
[2024-10-10 18:50] VITALS: BP 113/44; PULSE 68; RESP 18; TEMP 98.2; O2SAT 95
[2024-10-10 20:00] VITALS: PULSE 65; RESP 18; O2SAT 94
[2024-10-10 21:00] VITALS: BP 117/57; PULSE 65; RESP 18; TEMP 97.6; O2SAT 94
[2024-10-11 01:00] VITALS: BP 111/48; PULSE 65; RESP 16; TEMP 97.7; O2SAT 94
[2024-10-11] MEDS: KETOROLAC TROMETH 30 MG/ML 1ML VIAL IV PRN (04:37)
[2024-10-11 05:00] VITALS: BP 114/57; PULSE 69; RESP 16; TEMP 97.8; O2SAT 98
[2024-10-11 08:50] LABS: Basophils # (auto) 0 10 ^3/uL (0-0.2); Basophils % (auto) 0.6 % (0.0-2.0); Eosinophils # (auto) 0.2 10 ^3/uL (0-0.8); Eosinophils % (auto) 3.5 % (0.0-7.0); Hematocrit 38.2 % (36.0-46.0); Hemoglobin 12.7 g/dL (12.2-16.2); Lymphocytes # (auto) 2.6 10 ^3/uL (0.4-5.4); Lymphocytes % (auto) 41.7 % (10.0-50.0); Mean Corpuscular Hemoglobin 29.7 pg (28.0-32.0); Mean Corpuscular Hgb Conc. 33.2 g/dL (32.0-36.0); Mean Corpuscular Volume 89.4 fL (80.0-100.0); Monocytes # (auto) 0.5 10 ^3/uL (0-1.3); Monocytes % (auto) 8.4 % (0.0-12.0); Neutrophils # (auto) 2.8 10 ^3/uL (1.6-8.6); Neutrophils % (auto) 45.8 % (37.0-80.0); Nucleated Red Blood Cells % 0.2 %; Platelet Count (auto) 219 10^3/uL (140-450); Red Blood Cells 4.28 10^6/uL (4.0-5.20); Red Cell Distribution Width 14.5 % (11.8-14.3); White Blood Cell 6.1 10^3/uL (4.4-10.8)
[2024-10-11 09:01] LABS: Albumin 3.4 g/dL (3.2-4.8); Anion Gap 8 (5-15); BUN/Creatinine Ratio 14.8 (10.0-20.0); Bilirubin, Total 0.6 mg/dL (0.2-1.0); Blood Urea Nitrogen 9 mg/dL (9-23); Calcium 9.1 mg/dL (8.7-10.4); Carbon Dioxide 24 mmol/L (20-31); Chloride 107 mmol/L (98-107); Glucose 94 mg/dL (74-106); Potassium 4.2 mmol/L (3.5-5.1); Sodium 139 mmol/L (136-145); Total Protein 6.2 g/dL (5.7-8.2)
[2024-10-11 09:02] LABS: Alanine Aminotransferase 53 U/L (7-40); Alkaline Phosphatase 119 U/L (46-116); Aspartate Aminotransferase 60 U/L (13-40)
[2024-10-11 09:29] VITALS: BP 108/40; PULSE 66; RESP 16; TEMP 98.6; O2SAT 94
[2024-10-11] MEDS: ENOXAPARIN SOD 40 MG/0.4 ML SYRINGE SC SCH (09:34)
[2024-10-11] MEDS: amLODIPine BESYLATE 5 MG TAB PO SCH (09:34)
[2024-10-11] MEDS: PANTOPRAZOLE 40 MG/10 ML VIAL INJ IV SCH (09:36)
[2024-10-11 12:48] VITALS: BP 111/65; PULSE 80; RESP 20; TEMP 97.8; O2SAT 97
[2024-10-11 20:00] VITALS: RESP 18
[2024-10-11 21:00] VITALS: BP 132/68; PULSE 66; RESP 16; TEMP 98.1; O2SAT 94
[2024-10-12] VITALS (8 sets, daily range): BP systolic 109–145; BP diastolic 56–73; PULSE 62–76; RESP 15–18; TEMP 97.5–98.3; O2SAT 93–98
[2024-10-12] MEDS: ACETAMINOPHEN 325 MG TAB PO PRN (16:22)
--- NOTE | 2024-10-12 17:29 | DVHPN2 ---
Subjective She is feeling improved, initially came for abdominal pain. Doing well now. Reviewed: H&P Changes from previous H/P or p: No Changes General: Per HPI Objective Vitals Vital Signs Date Time Temp Pulse Resp B/P (MAP) Pulse Ox O2 Delivery O2 Flow Rate FiO2 10/12/24 16:55 98.3 76 17 109/73 (85) 95 98.3 10/12/24 08:00 Room Air* 0 21 Intake/Output Intake and Output 10/12/24 07:00 Intake Total 1400 ml Output Total 400 ml Balance 1000 ml Intake Oral 1400 ml Output Urine Total 400 ml # Voids 2 Exam GEN: Healthy appearing, well-developed, NAD. HEENT: NC/AT; MMM. CV: RRR, no m/r/g. LUNGS: CTAB, no w/r/c. ABD: Tender to palpation around supraumbilical region. Bowel sounds normal intact. EXT: skin Warm, well perfused. no rashes. No clubbing, cyanosis, or edema. NEURO: Ambulating with no limitations. No focal deficits. Medications Current Medications Medications Dose Ordered Sig/Juan José Route Start Time Stop Time Status Last Admin Dose Admin Ketorolac Tromethamine 15 mg Q6HPRN PRN IV 10/10/24 16:30 10/15/24 16:29 10/11/24 18:19 15 MG Pantoprazole Sodium 40 mg DAILY IV 10/11/24 10:00 10/12/24 09:15 40 MG Sodium Chloride 1,000 ml @ 60 mls/hr [id number] IV 10/10/24 16:30 10/11/24 09:39 60 MLS/HR Ondansetron HCl 4 mg Q4HP PRN IV 10/10/24 16:30 10/10/24 16:50 4 MG Enoxaparin Sodium 40 mg DAILY SC 10/11/24 10:00 10/12/24 09:21 40 MG Acetaminophen 650 mg Q6HP PRN PO 10/10/24 16:30 10/12/24 16:22 650 MG Amlodipine Besylate 2.5 mg DAILY PO 10/11/24 10:00 10/12/24 09:21 2.5 MG Laboratory Results Laboratory Tests 10/11/24 07:48 Urinalysis Test 10/10/24 11:05 Urine Color Light-yellow (Yellow) Urine Clarity Clear (Clear) Urine pH 7.5 (5.0-9.0) Urine Specific [place] 1.010 (1.001-1.035) Urine Protein Negative (Negative) Urine Ketones Negative (Negative) Urine Blood Negative /uL (Negative) Urine Nitrite Negative (Negative) Urine Bilirubin Negative (Negative) Urine Urobilinogen Normal mg/dL (Negative) Urine Leukocyte Esterase Negative /uL (Negative) Urine RBC 1 /hpf (0 - 4) Urine Microscopic WBC < 1 /HPF (0-5) Urine Squamous Epithelial Cells Few /hpf (<5) Urine Bacteria None seen /hpf (None Seen) Urine Glucose Normal mg/dL (Normal) Labs and/or images reviewed: Labs reviewed by me, Image(s) reviewed by me Assessment/Plan Assessment/Plan 10/12 patient was admitted 10/10, today I am inheriting the case. 83-year-old female presented with abdominal pain. Has history of cholecystectomy, hysterectomy, ovaries still present. Pain X periumbilical associated with nausea. Denies dysuria, fevers. CBC unconcerning. CMP initially unconcerning, on repeat LFTs are rising with ALP rise. CT abdomen and pelvis with some colonic diverticulosis, but concerning for multiple pulmonary nodules, meds possible. Tolerating p.o., abdominal pain appears to be tolerable we will re- evaluate tomorrow. We will get CT with contrast to eval pulmonary nodules, otherwise outpatient follow up Assessment Intractable abdominal pain Decreased p.o. tolerance PuD possible Multiple pulmonary nodules Colonic diverticulosis Transaminitis ALP elevated History of GERD requiring EGD dilation Sliding hiatal hernia Grade a erosive esophagitis Plan CT chest with contrast P.r.n. pain control for analgesia IV ppi 40 daily IV fluids IV Zofran for antiemetic 4 mg q.6h Diet regular GI prophylaxis Protonix DVT prophylaxis Lovenox Med surge Full code Plan discussed with: Patient Date of Service: October 12, 2024 Billing Provider: TIMBO SAEED MD Common Visit Codes: [id number] INP/OBS CARE(HIGH) TIMBO SAEED MD October 12, 2024 17:29
[2024-10-12 18:24] LABS: Alanine Aminotransferase 34 U/L (7-40); Albumin 3.5 g/dL (3.2-4.8); Alkaline Phosphatase 102 U/L (46-116); Anion Gap 7 (5-15); Aspartate Aminotransferase 21 U/L (13-40); BUN/Creatinine Ratio 16.7 (10.0-20.0); Bilirubin, Total 0.3 mg/dL (0.2-1.0); Blood Urea Nitrogen 10 mg/dL (9-23); Calcium 8.9 mg/dL (8.7-10.4); Carbon Dioxide 27 mmol/L (20-31); Glucose 87 mg/dL (74-106); Potassium 3.8 mmol/L (3.5-5.1); Sodium 142 mmol/L (136-145); Total Protein 6.2 g/dL (5.7-8.2)
[2024-10-12 18:42] LABS: Chloride 108 mmol/L (98-107)
[2024-10-12] MEDS ORDERED: IOHEXOL 300 MG/ML 100ML BOTTLE IJ ONE (22:51)
[2024-10-13] VITALS (7 sets, daily range): BP systolic 111–149; BP diastolic 49–78; PULSE 66–96; RESP 14–17; TEMP 97.5–98.6; O2SAT 93–99
--- NOTE | 2024-10-13 03:12 | DVH ---
Exam: CT CHEST WITH CONTRAST History: eval lung nodules Comparison Study: CT abdomen 10/10/2024 TECHNIQUE: Following the administration of 100 cc of Omnipaque 300 intravenous contrast, CT imaging o f the chest was performed Axial, coronal and sagittal multiplanar reformats were obtained from the ax ial data set by the technologist. Radiation optimization: All CT scans at this facility use at least one of these dose optimization solo hniques: automated exposure control mA and/or kV adjustment per patient size (includes targeted exam s where dose is matched to clinical indication) or iterative reconstruction. Radiation Dose Information: CT Dose: CTDI volume is 23.88 mGy. Dose-length product is 857.33 mGy*cm FINDINGS: The thyroid gland appears enlarged with right substernal extension. The airway appears patent. Promin ent paratracheal lymph node measuring 0.7 cm. No pericardial or pleural effusion. There are several scattered pulmonary nodules with indistinct margins. The largest is in the anterior left lower lobe along the fissure measuring 1.5 x 1.5 cm. Additional point gel in the posterior left lower lobe, 1.2 cm right lower lobe, 1.5 cm along the right diaphragm 1.1 cm in the right upper lobe few emphysematous bulla are noted. Visualized portions of the upper abdomen demonstrate prior cholecystectomy. No suspicious osseous lesion. Chronic appearing compression deformity of L1. IMPRESSION: 1. Several bilateral pulmonary nodules measuring up to 1.5 cm, lower lobe predominant, do favor metas tatic disease in appearance.
[2024-10-13 06:59] LABS: Basophils # (auto) 0 10 ^3/uL (0-0.2); Basophils % (auto) 0.6 % (0.0-2.0); Eosinophils # (auto) 0.2 10 ^3/uL (0-0.8); Eosinophils % (auto) 3.6 % (0.0-7.0); Hematocrit 39.6 % (36.0-46.0); Lymphocytes # (auto) 2.5 10 ^3/uL (0.4-5.4); Lymphocytes % (auto) 43.5 % (10.0-50.0); Mean Corpuscular Hemoglobin 29.9 pg (28.0-32.0); Mean Corpuscular Hgb Conc. 32.9 g/dL (32.0-36.0); Monocytes # (auto) 0.5 10 ^3/uL (0-1.3); Monocytes % (auto) 9.2 % (0.0-12.0); Neutrophils # (auto) 2.5 10 ^3/uL (1.6-8.6); Neutrophils % (auto) 43.1 % (37.0-80.0); Platelet Count (auto) 235 10^3/uL (140-450); Red Blood Cells 4.35 10^6/uL (4.0-5.20); Red Cell Distribution Width 14.8 % (11.8-14.3); White Blood Cell 5.8 10^3/uL (4.4-10.8)
[2024-10-13 07:05] LABS: Alanine Aminotransferase 27 U/L (7-40); Albumin 3.4 g/dL (3.2-4.8); Alkaline Phosphatase 97 U/L (46-116); Anion Gap 10 (5-15); Aspartate Aminotransferase 20 U/L (13-40); BUN/Creatinine Ratio 9.7 (10.0-20.0); Calcium 8.9 mg/dL (8.7-10.4); Carbon Dioxide 24 mmol/L (20-31); Glucose 100 mg/dL (74-106); Potassium 4.1 mmol/L (3.5-5.1); Sodium 141 mmol/L (136-145); Total Protein 6.3 g/dL (5.7-8.2)
[2024-10-13 07:06] LABS: Bilirubin, Total 0.3 mg/dL (0.2-1.0)
[2024-10-13 07:08] LABS: Blood Urea Nitrogen 6 mg/dL (9-23); Chloride 107 mmol/L (98-107)
--- NOTE | 2024-10-13 13:56 | DVHPN2 ---
Subjective She is feeling improved, initially came for abdominal pain. Doing well now. Reviewed: H&P Changes from previous H/P or p: No Changes General: Per HPI Objective Vitals Vital Signs Date Time Temp Pulse Resp B/P (MAP) Pulse Ox O2 Delivery O2 Flow Rate FiO2 10/13/24 08:33 136/69 10/13/24 08:00 66 16 97 Room Air* 0 21 10/13/24 05:00 98.0 98.0 Intake/Output Intake and Output 10/13/24 07:00 Intake Total 2750 ml Balance 2750 ml Intake Oral 2090 ml IV Total 660 ml # Voids 8 Exam GEN: Healthy appearing, well-developed, NAD. HEENT: NC/AT; MMM. CV: RRR, no m/r/g. LUNGS: CTAB, no w/r/c. ABD: Tender to palpation around supraumbilical region. Bowel sounds normal intact. EXT: skin Warm, well perfused. no rashes. No clubbing, cyanosis, or edema. NEURO: Ambulating with no limitations. No focal deficits. Medications Current Medications Medications Dose Ordered Sig/Juan José Route Start Time Stop Time Status Last Admin Dose Admin Ketorolac Tromethamine 15 mg Q6HPRN PRN IV 10/10/24 16:30 10/15/24 16:29 10/12/24 20:54 15 MG Pantoprazole Sodium 40 mg DAILY IV 10/11/24 10:00 10/13/24 08:34 40 MG Sodium Chloride 1,000 ml @ 60 mls/hr [id number] IV 10/10/24 16:30 10/13/24 08:41 60 MLS/HR Ondansetron HCl 4 mg Q4HP PRN IV 10/10/24 16:30 10/12/24 23:20 4 MG Enoxaparin Sodium 40 mg DAILY SC 10/11/24 10:00 10/13/24 08:35 40 MG Acetaminophen 650 mg Q6HP PRN PO 10/10/24 16:30 10/13/24 08:32 650 MG Amlodipine Besylate 2.5 mg DAILY PO 10/11/24 10:00 10/13/24 08:33 2.5 MG Sucralfate 1 gm BID@0600,2200 PO 10/13/24 22:00 Laboratory Results Laboratory Tests 10/13/24 05:05 Chemistry Test 10/12/24 17:54 10/13/24 05:05 Albumin 3.5 g/dL (3.2-4.8) 3.4 g/dL (3.2-4.8) Calcium Level 8.9 mg/dL (8.7-10.4) 8.9 mg/dL (8.7-10.4) Total Protein 6.2 g/dL (5.7-8.2) 6.3 g/dL (5.7-8.2) LFT Test 10/12/24 17:54 10/13/24 05:05 Alanine Aminotransferase (ALT) 34 U/L (7-40) 27 U/L (7-40) Alkaline Phosphatase 102 U/L (46-116) 97 U/L (46-116) Aspartate Amino Transferase (AST) 21 U/L (13-40) 20 U/L (13-40) Total Bilirubin 0.3 mg/dL (0.2-1.0) 0.3 mg/dL (0.2-1.0) Urinalysis Test 10/10/24 11:05 Urine Color Light-yellow (Yellow) Urine Clarity Clear (Clear) Urine pH 7.5 (5.0-9.0) Urine Specific [place] 1.010 (1.001-1.035) Urine Protein Negative (Negative) Urine Ketones Negative (Negative) Urine Blood Negative /uL (Negative) Urine Nitrite Negative (Negative) Urine Bilirubin Negative (Negative) Urine Urobilinogen Normal mg/dL (Negative) Urine Leukocyte Esterase Negative /uL (Negative) Urine RBC 1 /hpf (0 - 4) Urine Microscopic WBC < 1 /HPF (0-5) Urine Squamous Epithelial Cells Few /hpf (<5) Urine Bacteria None seen /hpf (None Seen) Urine Glucose Normal mg/dL (Normal) Labs and/or images reviewed: Labs reviewed by me, Image(s) reviewed by me Assessment/Plan Assessment/Plan 10/12 patient was admitted 10/10, today I am inheriting the case. 83-year-old female presented with abdominal pain. Has history of cholecystectomy, hysterectomy, ovaries still present. Pain X periumbilical associated with nausea. Denies dysuria, fevers. CBC unconcerning. CMP initially unconcerning, on repeat LFTs are rising with ALP rise. CT abdomen and pelvis with some colonic diverticulosis, but concerning for multiple pulmonary nodules, meds possible. Tolerating p.o., abdominal pain appears to be tolerable we will re- evaluate tomorrow. 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 Patient said she has had a colonoscopy here but no recorded colonoscopy in chart records. We will consult GI to eval for abdominal pain and possible source of meds in:, eval for need for colonoscopy. We will consult pulmonology for bilateral metastatic pulmonary disease. Patient is tolerating food better now, abdominal pain is subsiding slowly. Assessment Intractable abdominal pain Decreased p.o. tolerance PuD possible Multiple pulmonary nodules Colonic diverticulosis Transaminitis ALP elevated History of GERD requiring EGD dilation Sliding hiatal hernia Grade a erosive esophagitis Plan CT chest with contrast P.r.n. pain control for analgesia IV ppi 40 daily IV fluids IV Zofran for antiemetic 4 mg q.6h Diet regular GI prophylaxis Protonix DVT prophylaxis Lovenox Med surge Full code Plan discussed with: Patient My Orders Orders - TIMBO SAEED MD Procedure Category Date Status Time Chest With Contrast CT 10/12/24 Resulted 17:25 Sucralfate Susp PHA 10/13/24 In Process (Carafate Susp) 22:00 * [facility] Spooler Tender CONS 10/13/24 Transmitted 10:19 *Consult CONS 10/13/24 Transmitted / 10:19 Date of Service: October 13, 2024 Billing Provider: TIMBO SAEED MD Common Visit Codes: [id number] INP/OBS CARE(HIGH) TIMBO SAEED MD October 13, 2024 13:56
--- NOTE | 2024-10-13 16:16 | DVHINCON2 ---
Date of service: October 13, [address] Benítez Reason for Consultation Metastatic pulmonary nodules rule out primary colonic malignancy History of Present Illness 83 year old female presents to the ED with chief complaint of abdominal pain. Patient reports that she had been experiencing periumbilical abdominal pain that radiated to her epigastric region along with associated nausea for the past 3 days. Patient relays that she has had her gallbladder removed already and an umbilical hernia repaired. Patient denies any vomiting, diarrhea, dysuria, hematuria, chest pain, SOB, fever, chills, or constipation. CT chest abdomen pelvis showed pulmonary nodules possibly metastatic and I was asked to evaluate him for possible colonoscopy to rule out colonic primary. Patient stated she has had two colonoscopies however upon review of her records it appears she has had three endoscopies done here in the past but no recorded colonoscopy I have reviewed her clinic notes dating back almost 10 years. Patient had known history of pulmonary nodules dating back over 10 years ago even when she was with [facility]. She was seen by our Pulmonary physician in 2016 and at that year she had gone undergone two PET scans which were inconclusive. She is usually followed by Dr. Nic Cueva in clinic and I do not see any evidence of recent visit with a wind operations manager or any lung biopsy I do have a report of a previous colonoscopy that was done in [place] on October 11, 2014 which was negative except for mild sigmoid diverticular disease. The patient would be due for a repeat screening colonoscopy at this time Past Medical History PAST MEDICAL HISTORY: Anxiety, HTN; GERD Past Surgical History Surgical History: Cholecystectomy, Hernia Repair, Hysterectomy Surgical History (Other): Oophorectomy Family History: FH: heart attack G8 FATHER Family history: Diabetes mellitus G8 MOTHER G8 FATHER Family history: Hypertension G8 MOTHER Allergies: Coded Allergies: Meperidine (Unverified Allergy, Intermediate, angioedema, rash, 10/11/23) Penicillins (Unverified Allergy, Intermediate, angioedema, rash, 10/11/23) Cephalexin (Verified Allergy, Unknown, 09/06/17) Hydrocodone (Verified Allergy, Unknown, 09/06/17) Home Meds Reported Medications Ibuprofen (Advil) 200 Mg Cap, 200 MG PO PRN, CAP 10/11/23 Amlodipine Besylate (Amlodipine Besylate) 2.5 Mg Tab, 2.5 MG PO PRN, TAB Take if BP exceeds 140/90 10/11/23 Pantoprazole Sodium Sesquihydr (Protonix) 40 Mg Tab, 40 MG PO DAILY, #30 TAB 02/13/16 Current Medications Current Medications Medications (Trade) Dose Ordered Sig/Juan José Route PRN Reason Start Time Stop Time Status Last Admin Sucralfate (Carafate Susp) 1 gm BID@0600,2200 PO 10/13/24 22:00 Review of Systems Last endoscopy done here by me Operative Report DATE OF OPERATION: 10/15/23 PROCEDURE: Upper Endoscopy with biopsy and dilate esophagus unguided. PREOPERATIVE INDICATION: The patient is a 82 -year-old female undergoing endoscopy for GERD and oropharyngeal dysphagia POSTOPERATIVE DIAGNOSES: 1. 3 cm sliding-type hiatal hernia with a slight angulation at the GE junction above the hiatal hernia and minimal grade a erosive esophagitis 2. Mild gastritis 3. Distal esophagus was dilated with Isidro #48 Vital Signs Vital Signs Date Time Temp Pulse Resp B/P (MAP) Pulse Ox O2 Delivery O2 Flow Rate FiO2 10/13/24 13:00 97.8 73 15 121/49 (73) 99 97.8 10/13/24 08:00 Room Air* 0 21 Physical Exam GEN: Healthy appearing, well-developed, NAD. HEENT: NC/AT; MMM. CV: RRR, no m/r/g. LUNGS: CTAB, no w/r/c. ABD: Tender to palpation around supraumbilical region. Bowel sounds normal intact. EXT: skin Warm, well perfused. no rashes. No clubbing, cyanosis, or edema. NEURO: Ambulating with no limitations. No focal deficits. Labs/Diagnostic Data Labs Test 10/13/24 05:05 10/10/24 11:51 10/10/24 11:05 Range/Units White Blood Count 5.8 4.4-10.8 10^3/uL Red Blood Count 4.35 4.0-5.20 10^6/uL Hemoglobin 13.0 12.2-16.2 g/dL Hematocrit 39.6 36.0-46.0 % Mean Corpuscular Volume 91.0 80.0-100.0 fL Mean Corpuscular Hemoglobin 29.9 28.0-32.0 pg Mean Corpuscular Hemoglobin Concent 32.9 32.0-36.0 g/dL Red Cell Distribution Width 14.8 H 11.8-14.3 % Platelet Count 235 140-450 10^3/uL Mean Platelet Volume 6.9 6.9-10.8 fL Neutrophils (%) (Auto) 43.1 37.0-80.0 % Lymphocytes (%) (Auto) 43.5 10.0-50.0 % Monocytes (%) (Auto) 9.2 0.0-12.0 % Eosinophils (%) (Auto) 3.6 0.0-7.0 % Basophils (%) (Auto) 0.6 0.0-2.0 % Neutrophils # (Auto) 2.5 1.6-8.6 10 ^3/uL Lymphocytes # (Auto) 2.5 0.4-5.4 10 ^3/uL Monocytes # (Auto) 0.5 0-1.3 10 ^3/uL Eosinophils # (Auto) 0.2 0-0.8 10 ^3/uL Basophils # (Auto) 0 0-0.2 10 ^3/uL Nucleated Red Blood Cells 0.0 % Sodium Level 141 136-145 mmol/L Potassium Level 4.1 3.5-5.1 mmol/L Chloride Level 107 98-107 mmol/L Carbon Dioxide Level 24 20-31 mmol/L Anion Gap 10 5-15 Blood Urea Nitrogen 6 L 9-23 mg/dL Creatinine 0.62 0.550-1.02 mg/dL Glomerular Filtration Rate Calc 88 >90 mL/min BUN/Creatinine Ratio 9.7 L 10.0-20.0 Serum Glucose 100 74-106 mg/dL Calcium Level 8.9 8.7-10.4 mg/dL Total Bilirubin 0.3 0.2-1.0 mg/dL Aspartate Amino Transferase (AST) 20 13-40 U/L Alanine Aminotransferase (ALT) 27 7-40 U/L Alkaline Phosphatase 97 46-116 U/L Total Protein 6.3 5.7-8.2 g/dL Albumin 3.4 3.2-4.8 g/dL Prothrombin Time 10.2 9.3-11.8 sec Prothrombin Time INR 0.96 0.9-1.15 Activated Partial Thromboplast Time 22.2 L 24.5-34.5 SEC Magnesium Level 2.1 1.6-2.6 mg/dL Lipase 34 12-53 U/L Urine Color Light-yellow Yellow Urine Clarity Clear Clear Urine pH 7.5 5.0-9.0 Urine Specific [place] 1.010 1.001-1.035 Urine Protein Negative Negative Urine Ketones Negative Negative Urine Blood Negative Negative /uL Urine Nitrite Negative Negative Urine Bilirubin Negative Negative Urine Urobilinogen Normal Negative mg/dL Urine Leukocyte Esterase Negative Negative /uL Urine RBC 1 0 - 4 /hpf Urine Microscopic WBC < 1 0-5 /HPF Urine Squamous Epithelial Cells Few <5 /hpf Urine Bacteria None seen None Seen /hpf Urine Glucose Normal Normal mg/dL CT Chest IMPRESSION: 1. Several bilateral pulmonary nodules measuring up to 1.5 cm, lower lobe predominant, do favor metastatic disease in appearance. CT CHEST ABD PELVIS IMPRESSION: 1. Partially visualized multiple pulmonary nodules. Metastasis can not be excluded. 2. Colonic diverticulosis without acute diverticulitis. Problems(with codes): (1) Diverticulosis (2) Pulmonary nodules/lesions, multiple (3) Diffuse abdominal pain Plan/Recommendation Plan Patient will undergo a bowel prep tomorrow I will plan on doing both an endoscopic and a colonoscopy test for her tomorrow to rule out any occult malignancy She did have negative EGD about a year ago but it would be prudent to check it again to complete GI work Last recorded colonoscopy was at [place] on 10/11/2014 which had only shown sigmoid diverticular disease Patient has a longstanding history of having pulmonary nodules and even had PET scans done in 2012 in 2017 but recently has not had any pulmonary follow up Plan discussed with: Patient, Other (Nurse Alexey and Dr Benítez) BLOSSOM KERN MD October 13, 2024 16:15
[2024-10-13] MEDS: GOLYTELY 4L KIT PO ONE (16:36)
--- NOTE | 2024-10-13 20:33 | DVHINCON2 ---
Date of service: October 13, [address] Benítez Reason for Consultation Acute respiratory failure History of Present Illness History Source: Patient Exam Limitations: No limitations HPI Patient is an 83-year old lady with a history of hypertension who presented with abdominal pain. Was seen in the emergency room where CT of the abdomen demonstrated colonic diverticulosis and the patient was admitted for further workup. Pulmonary nodules were seen on upper cuts of the CT abdomen and dedicated CT of the chest was subsequently obtained, revealing several bilateral pulmonary nodules measuring up to 1.5 cm suspicious for metastasis. Pulmonology was consulted to assist in management. Patient denies history of smoking. Home Meds Reported Medications Ibuprofen (Advil) 200 Mg Cap, 200 MG PO PRN, CAP 10/11/23 Amlodipine Besylate (Amlodipine Besylate) 2.5 Mg Tab, 2.5 MG PO PRN, TAB Take if BP exceeds 140/90 10/11/23 Pantoprazole Sodium Sesquihydr (Protonix) 40 Mg Tab, 40 MG PO DAILY, #30 TAB 02/13/16 Past Medical History Cardiac: HTN Pulmonary: No pertinent Hx Central Nervous System: No pertinent Hx GI: No pertinent Hx Hemotology/Oncology: No pertinent Hx Hepatobiliary: No pertinent Hx Psychiatric: No pertinent Hx Musculoskeletal: No pertinent Hx Rheumotologic: No pertinent Hx Infectious Disease: No peritnent Hx ENT: No pertinent Hx Renal/: No pertinent Hx Endocrine: No pertinent Hx Dermatology: No pertinent Hx Past Surgical History: No pertinent Hx Family History: CAD, DM, Hypertension Patient Family History: FH: heart attack G8 FATHER Family history: Diabetes mellitus G8 MOTHER G8 FATHER Family history: Hypertension G8 MOTHER Smoker: No Hx (Negative) Alocohol: None Drugs: None Lives with: With family Domestic Violence: Neg Review of Systems Gastrointestinal: Abdominal Pain H&P Exam Vital Signs Vital Signs Date Time Temp Pulse Resp B/P (MAP) Pulse Ox O2 Delivery O2 Flow Rate FiO2 10/13/24 17:00 98.6 70 14 121/62 (81) 96 98.6 10/13/24 08:00 Room Air* 0 21 General Appeara: Well developed, Well nourished, Normal Appearance Head Exam: Normal inspection Neck Exam: Normal inspection, Non-tender, Normal alignment Eye Exam: bilateral eye Normal inspection, bilateral eye PERRL, bilateral eye EOMI Ear Exam: bilateral ear Auricle normal, bilateral ear Canal normal, bilateral ear TM normal Nasal Exam: Normal inspection Mouth: Normal Inspection Pulmonary/Respiratory: Normal inspection, Normal breath sounds, Chest non- tender, Lungs clear Cardiovascular/Chest: Normal inspection, Regular rate, Normal Rhythm Peripheral Pulses: 4+ Radial (R), 4+ Radial (L), 4+ Brachial (R), 4+ Brachial ( L) Abdominal Exam: Normal bowel sounds Labs/Xrays Labs Test 10/13/24 05:05 10/10/24 11:51 10/10/24 11:05 Range/Units White Blood Count 5.8 4.4-10.8 10^3/uL Red Blood Count 4.35 4.0-5.20 10^6/uL Hemoglobin 13.0 12.2-16.2 g/dL Hematocrit 39.6 36.0-46.0 % Mean Corpuscular Volume 91.0 80.0-100.0 fL Mean Corpuscular Hemoglobin 29.9 28.0-32.0 pg Mean Corpuscular Hemoglobin Concent 32.9 32.0-36.0 g/dL Red Cell Distribution Width 14.8 H 11.8-14.3 % Platelet Count 235 140-450 10^3/uL Mean Platelet Volume 6.9 6.9-10.8 fL Neutrophils (%) (Auto) 43.1 37.0-80.0 % Lymphocytes (%) (Auto) 43.5 10.0-50.0 % Monocytes (%) (Auto) 9.2 0.0-12.0 % Eosinophils (%) (Auto) 3.6 0.0-7.0 % Basophils (%) (Auto) 0.6 0.0-2.0 % Neutrophils # (Auto) 2.5 1.6-8.6 10 ^3/uL Lymphocytes # (Auto) 2.5 0.4-5.4 10 ^3/uL Monocytes # (Auto) 0.5 0-1.3 10 ^3/uL Eosinophils # (Auto) 0.2 0-0.8 10 ^3/uL Basophils # (Auto) 0 0-0.2 10 ^3/uL Nucleated Red Blood Cells 0.0 % Sodium Level 141 136-145 mmol/L Potassium Level 4.1 3.5-5.1 mmol/L Chloride Level 107 98-107 mmol/L Carbon Dioxide Level 24 20-31 mmol/L Anion Gap 10 5-15 Blood Urea Nitrogen 6 L 9-23 mg/dL Creatinine 0.62 0.550-1.02 mg/dL Glomerular Filtration Rate Calc 88 >90 mL/min BUN/Creatinine Ratio 9.7 L 10.0-20.0 Serum Glucose 100 74-106 mg/dL Calcium Level 8.9 8.7-10.4 mg/dL Total Bilirubin 0.3 0.2-1.0 mg/dL Aspartate Amino Transferase (AST) 20 13-40 U/L Alanine Aminotransferase (ALT) 27 7-40 U/L Alkaline Phosphatase 97 46-116 U/L Total Protein 6.3 5.7-8.2 g/dL Albumin 3.4 3.2-4.8 g/dL Prothrombin Time 10.2 9.3-11.8 sec Prothrombin Time INR 0.96 0.9-1.15 Activated Partial Thromboplast Time 22.2 L 24.5-34.5 SEC Magnesium Level 2.1 1.6-2.6 mg/dL Lipase 34 12-53 U/L Urine Color Light-yellow Yellow Urine Clarity Clear Clear Urine pH 7.5 5.0-9.0 Urine Specific [place] 1.010 1.001-1.035 Urine Protein Negative Negative Urine Ketones Negative Negative Urine Blood Negative Negative /uL Urine Nitrite Negative Negative Urine Bilirubin Negative Negative Urine Urobilinogen Normal Negative mg/dL Urine Leukocyte Esterase Negative Negative /uL Urine RBC 1 0 - 4 /hpf Urine Microscopic WBC < 1 0-5 /HPF Urine Squamous Epithelial Cells Few <5 /hpf Urine Bacteria None seen None Seen /hpf Urine Glucose Normal Normal mg/dL Assessment/Plan Plan Impression Acute hypoxemic respiratory failure Pulmonary nodules Abdominal pain Atelectasis Patient seen and examined Events Low oxygen requirements On 2 liters nasal cannula Vital signs stable Labs and imaging reviewed CT of the chest shows several bilateral pulmonary nodules measuring up to 1.5 cm Management Supplemental oxygen Titrate to maintain sats 90% or above Incentive spirometry Okay to withhold antibiotics in absence of fever and white count Bronchodilators Monitor renal function Monitor electrolytes Supplement as needed Pain control Avoid oversedation Consult IR for biopsy of pulmonary nodules Recommend repeat CT of the chest every 3-6 months DVT prophylaxis Plan discussed with: Patient SULEMA MCKENNA MD October 13, 2024 20:33
[2024-10-13] MEDS: SUCRALFATE 1 GM/10 ML ORAL SUSP PO SCH (21:04)
[2024-10-14] VITALS (8 sets, daily range): BP systolic 117–155; BP diastolic 71–92; PULSE 60–76; RESP 14–18; TEMP 97.6–98.8; O2SAT 96–99
[2024-10-14] MEDS: MAGNESIUM CITRATE SOLUTION 300 ML BTL PO ONE (05:10)
[2024-10-14 06:12] LABS: Basophils # (auto) 0 10 ^3/uL (0-0.2); Basophils % (auto) 0.6 % (0.0-2.0); Eosinophils # (auto) 0.2 10 ^3/uL (0-0.8); Eosinophils % (auto) 2.9 % (0.0-7.0); Hematocrit 39.7 % (36.0-46.0); Hemoglobin 13.3 g/dL (12.2-16.2); Lymphocytes # (auto) 3.2 10 ^3/uL (0.4-5.4); Lymphocytes % (auto) 47.7 % (10.0-50.0); Mean Corpuscular Hemoglobin 29.8 pg (28.0-32.0); Mean Corpuscular Hgb Conc. 33.4 g/dL (32.0-36.0); Mean Corpuscular Volume 89.1 fL (80.0-100.0); Monocytes # (auto) 0.5 10 ^3/uL (0-1.3); Neutrophils # (auto) 2.8 10 ^3/uL (1.6-8.6); Neutrophils % (auto) 40.8 % (37.0-80.0); Nucleated Red Blood Cells % 0.1 %; Platelet Count (auto) 247 10^3/uL (140-450); Red Blood Cells 4.46 10^6/uL (4.0-5.20); Red Cell Distribution Width 14.6 % (11.8-14.3); White Blood Cell 6.8 10^3/uL (4.4-10.8)
[2024-10-14 06:16] LABS: INR 0.95 (0.9-1.15); Prothrombin Time 10.1 sec (9.3-11.8)
[2024-10-14] MEDS: GOLYTELY 4L KIT PO ONE (06:30)
[2024-10-14 06:33] LABS: Alanine Aminotransferase 22 U/L (7-40); Albumin 3.6 g/dL (3.2-4.8); Alkaline Phosphatase 96 U/L (46-116); Anion Gap 11 (5-15); Aspartate Aminotransferase 18 U/L (13-40); BUN/Creatinine Ratio 9.5 (10.0-20.0); Calcium 8.8 mg/dL (8.7-10.4); Carbon Dioxide 25 mmol/L (20-31); Chloride 107 mmol/L (98-107); Glucose 99 mg/dL (74-106); Potassium 3.8 mmol/L (3.5-5.1); Sodium 143 mmol/L (136-145); Total Protein 6.7 g/dL (5.7-8.2)
[2024-10-14 06:34] LABS: Bilirubin, Total 0.4 mg/dL (0.2-1.0)
[2024-10-14 06:48] LABS: Blood Urea Nitrogen 6 mg/dL (9-23)
--- NOTE | 2024-10-14 12:12 | DVHPN2 ---
Progress Note - Dictate Date Seen: October 14, 2024 Has the PT tested + for MRSA If YES, has PT been informed?: No Medical Necessity Reason Pt with a Central, PICC or Fol: No vital signs Vital Sign Date Time Temp Pulse Resp B/P (MAP) Pulse Ox O2 Delivery O2 Flow Rate FiO2 10/14/24 10:00 117/71 10/14/24 08:35 98.1 60 16 96 98.1 10/13/24 20:00 Room Air* 0 21 Total Intake and Output 10/13/24 10/13/24 10/14/24 15:00 23:00 07:00 Intake Total 330 ml 1020 ml 2100 ml Balance 330 ml 1020 ml 2100 ml medications Current Medications Medications Dose Ordered Sig/Juan José Route Start Time Stop Time Status Last Admin Dose Admin Ketorolac Tromethamine 15 mg Q6HPRN PRN IV 10/10/24 16:30 10/15/24 16:29 10/12/24 20:54 15 MG Pantoprazole Sodium 40 mg DAILY IV 10/11/24 10:00 10/13/24 08:34 40 MG Sodium Chloride 1,000 ml @ 60 mls/hr [id number] IV 10/10/24 16:30 10/14/24 03:38 60 MLS/HR Ondansetron HCl 4 mg Q4HP PRN IV 10/10/24 16:30 10/12/24 23:20 4 MG Enoxaparin Sodium 40 mg DAILY SC 10/11/24 10:00 10/13/24 08:35 40 MG Acetaminophen 650 mg Q6HP PRN PO 10/10/24 16:30 10/13/24 20:47 650 MG Amlodipine Besylate 2.5 mg DAILY PO 10/11/24 10:00 10/13/24 08:33 2.5 MG Sucralfate 1 gm BID@0600,2200 PO 10/13/24 22:00 10/14/24 05:09 1 GM laboratory and microbiology Laboratory Tests 10/14/24 04:51 Test 10/14/24 04:51 Range/Units Serum Glucose 99 74-106 mg/dL Assessment/Plan Acute hypoxemic respiratory failure Pulmonary nodules Abdominal pain Atelectasis Patient seen and examined Events Low oxygen requirements On 2 liters nasal cannula Vital signs stable Labs and imaging reviewed CT of the chest shows several bilateral pulmonary nodules measuring up to 1.5 cm Management IR consult for bx continue supportive care Bronchodilators Monitor renal function Monitor electrolytes Supplement as needed Pain control Avoid oversedation DVT prophylaxis Plan discussed with: Other (rn) SULEMA MCKENNA MD October 14, 2024 12:12
[2024-10-14] MEDS ORDERED: METOCLOPRAMIDE HCL 5MG/ml INJ 2ml VIAL IV ONE (14:00)
--- NOTE | 2024-10-14 15:32 | DVHPN2 ---
Subjective She is feeling improved, initially came for abdominal pain. Doing well now. Reviewed: H&P Changes from previous H/P or p: No Changes General: Per HPI Objective Vitals Vital Signs Date Time Temp Pulse Resp B/P (MAP) Pulse Ox O2 Delivery O2 Flow Rate FiO2 10/14/24 12:10 98.5 76 16 141/89 (106) 98 98.5 10/14/24 08:15 Room Air* 0 21 Intake/Output Intake and Output 10/14/24 07:00 Intake Total 3450 ml Balance 3450 ml Intake Oral 2760 ml IV Total 690 ml # Voids 9 # Bowel Movements 4 Exam GEN: Healthy appearing, well-developed, NAD. HEENT: NC/AT; MMM. CV: RRR, no m/r/g. LUNGS: CTAB, no w/r/c. ABD: Tender to palpation around supraumbilical region. Bowel sounds normal intact. EXT: skin Warm, well perfused. no rashes. No clubbing, cyanosis, or edema. NEURO: Ambulating with no limitations. No focal deficits. Medications Current Medications Medications Dose Ordered Sig/Juan José Route Start Time Stop Time Status Last Admin Dose Admin Ketorolac Tromethamine 15 mg Q6HPRN PRN IV 10/10/24 16:30 10/15/24 16:29 10/12/24 20:54 15 MG Pantoprazole Sodium 40 mg DAILY IV 10/11/24 10:00 10/13/24 08:34 40 MG Sodium Chloride 1,000 ml @ 60 mls/hr [id number] IV 10/10/24 16:30 10/14/24 03:38 60 MLS/HR Ondansetron HCl 4 mg Q4HP PRN IV 10/10/24 16:30 10/12/24 23:20 4 MG Enoxaparin Sodium 40 mg DAILY SC 10/11/24 10:00 10/13/24 08:35 40 MG Acetaminophen 650 mg Q6HP PRN PO 10/10/24 16:30 10/13/24 20:47 650 MG Amlodipine Besylate 2.5 mg DAILY PO 10/11/24 10:00 10/13/24 08:33 2.5 MG Sucralfate 1 gm BID@0600,2200 PO 10/13/24 22:00 10/14/24 05:09 1 GM Ceftriaxone Sodium 50 ml @ 100 mls/hr DAILY@09 IV 10/15/24 09:00 UNV Metronidazole 100 ml @ 100 mls/hr Q8HR IV 10/14/24 22:00 Laboratory Results Laboratory Tests 10/14/24 04:51 Chemistry Test 10/14/24 04:51 Albumin 3.6 g/dL (3.2-4.8) Calcium Level 8.8 mg/dL (8.7-10.4) Total Protein 6.7 g/dL (5.7-8.2) Coagulation Test 10/14/24 04:51 Prothrombin Time 10.1 sec (9.3-11.8) Prothrombin Time INR 0.95 (0.9-1.15) LFT Test 10/14/24 04:51 Alanine Aminotransferase (ALT) 22 U/L (7-40) Alkaline Phosphatase 96 U/L (46-116) Aspartate Amino Transferase (AST) 18 U/L (13-40) Total Bilirubin 0.4 mg/dL (0.2-1.0) Urinalysis Test 10/10/24 11:05 Urine Color Light-yellow (Yellow) Urine Clarity Clear (Clear) Urine pH 7.5 (5.0-9.0) Urine Specific [place] 1.010 (1.001-1.035) Urine Protein Negative (Negative) Urine Ketones Negative (Negative) Urine Blood Negative /uL (Negative) Urine Nitrite Negative (Negative) Urine Bilirubin Negative (Negative) Urine Urobilinogen Normal mg/dL (Negative) Urine Leukocyte Esterase Negative /uL (Negative) Urine RBC 1 /hpf (0 - 4) Urine Microscopic WBC < 1 /HPF (0-5) Urine Squamous Epithelial Cells Few /hpf (<5) Urine Bacteria None seen /hpf (None Seen) Urine Glucose Normal mg/dL (Normal) Labs and/or images reviewed: Labs reviewed by me, Image(s) reviewed by me Assessment/Plan Assessment/Plan 10/12 patient was admitted 10/10, today I am inheriting the case. 83-year-old female presented with abdominal pain. Has history of cholecystectomy, hysterectomy, ovaries still present. Pain X periumbilical associated with nausea. Denies dysuria, fevers. CBC unconcerning. CMP initially unconcerning, on repeat LFTs are rising with ALP rise. CT abdomen and pelvis with some colonic diverticulosis, but concerning for multiple pulmonary nodules, meds possible. Tolerating p.o., abdominal pain appears to be tolerable we will re- evaluate tomorrow. 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 Patient said she has had a colonoscopy here but no recorded colonoscopy in chart records. We will consult GI to eval for abdominal pain and possible source of meds in:, eval for need for colonoscopy. We will consult pulmonology for bilateral metastatic pulmonary disease. Patient is tolerating food better now, abdominal pain is subsiding slowly. 10/14 - GI taking for EGD and colonoscopy today. Radiology consulted by [place] for IR excisional biopsy, likely tomorrow. Assessment Intractable abdominal pain Decreased p.o. tolerance PuD possible Multiple pulmonary nodules Colonic diverticulosis Transaminitis ALP elevated History of GERD requiring EGD dilation Sliding hiatal hernia Grade a erosive esophagitis Plan CT chest with contrast P.r.n. pain control for analgesia IV ppi 40 daily IV fluids IV Zofran for antiemetic 4 mg q.6h Diet regular GI prophylaxis Protonix DVT prophylaxis Lovenox Med surge Full code Plan discussed with: Patient My Orders Orders - TIMBO SAEED MD Procedure Category Date Status Time Ceftriaxone 1gm/50ml PHA 10/15/24 Logged D5w (Rocephin) 09:00 Metronidazole PHA 10/14/24 In Process 500mg/100ml (Flagyl 22:00 Right Upper Ext. US 10/14/24 Taken 14:18 Date of Service: October 14, 2024 Billing Provider: TIMBO SAEED MD Common Visit Codes: [id number] INP/OBS CARE(HIGH) TIMBO SAEED MD October 14, 2024 15:32
--- NOTE | 2024-10-14 15:44 | DVH ---
RIGHT Upper Extremity Venous Duplex Clinical History: Pain Comparison: None Technique: Duplex Doppler evaluation of the venous system of the RIGHT upper extremity including col or Doppler and spectral/pulsed waveform analysis was performed. Findings/Impression: Right cephalic vein demonstrates intraluminal thrombus and noncompressibility at the antecubital kameron a.
[2024-10-14] MEDS: cefTRIAXone 1GM/50ML D5W 50 ML IV SCH (17:32)
[2024-10-14] MEDS ORDERED: fentaNYL CITRATE 100 MCG/2 ML VL ONE (17:34)
[2024-10-14] MEDS ORDERED: MIDAZOLAM HCL 2MG/2ML 2ml VIAL (1mg/ml) ONE (17:34)
[2024-10-14] MEDS ORDERED: PROPOFOL 10 MG/ML 20 ML IV ONE (17:51)
[2024-10-14] MEDS ORDERED: DexAMETHasone SOD PHOS 10MG/1ML VIAL INJ ONE (17:51)
--- NOTE | 2024-10-14 18:10 | DVHOP2 ---
Operative Report DATE OF OPERATION: 10/14/24 PROCEDURE: Upper Endoscopy with biopsy. PREOPERATIVE INDICATION: The patient is a 83 -year-old female undergoing endoscopy for abnormal finding GI tract imaging rule out primary malignancy POSTOPERATIVE DIAGNOSES: 1. 2 cm sliding-type hiatal hernia with slight angulation at the diaphragmatic impingement 2. Mild gastritis otherwise normal examination up to the 2nd and 3rd part of the duodenum PROCEDURE PERFORMED BY: Blossom Oquendo GI NURSE: Temi SCOPE: Olympus videoendoscope. ASA CLASS: 3. PREOPERATIVE MEDICATIONS: Mac Dr. Cristina barrett PROCEDURE IN DETAIL: After obtaining an informed consent, the patient was placed on left lateral decubitus position. The patient was then sedated with the above medications. A bite block was placed between her teeth. The endoscope was then passed through the oropharynx, into the esophagus, and through the stomach and pylorus up to the second and third part of the duodenum. The endoscope was then withdrawn. The 2nd and 3rd part of the duodenum and the duodenal bulb were normal. There was good bile drainage. The pre-pyloric area antrum and body showed minimal gastritis. Gastric biopsies were obtained On retroflexion the fundus cardia and angularis were normal. The endoscope was then withdrawn into the distal esophagus She had a 2 cm sliding-type hiatal hernia with slightly irregular squamocolumnar junction no significant erosive esophagitis She had slight angulation of the hiatal hernia at the diaphragmatic impingement. There was no stricture obstruction or lesion The remaining distal and proximal esophagus and oropharynx were unremarkable The patient tolerated the procedure well without difficulty. COMPLICATIONS : None SPECIMENS: Gastric biopsies DISPOSITION: Transfer back to the floor Stable PLAN: 1. Await for biopsy result 2. Will place pt on Protonix 40 mg IV daily 3. Resume soft mechanical diet 4. Proceed with colonoscopy BLOSSOM OQUENDO MD October 14, 2024 18:10
--- NOTE | 2024-10-14 18:12 | DVHOP2 ---
Operative Report DATE OF OPERATION: 10/14/24 PROCEDURE: Diagnostic Colonoscopy. PREOPERATIVE INDICATION: The patient is a 83 -year-old female undergoing colonoscopy for colon cancer screening, abnormal finding GI tract imaging with metastatic lung disease rule out colon primary POSTOPERATIVE DIAGNOSES: 1. Moderate sigmoid diverticular disease 2. Trace internal hemorrhoids otherwise normal examination up to the cecum PROCEDURE PERFORMED BY: Blossom Oquendo M.D. SCOPE: Olympus videocolonoscope. ASA CLASS: 3. PREOPERATIVE MEDICATIONS: Dr. Cristina Hernández PROCEDURE IN DETAIL: After obtaining an informed consent, the patient was placed on left lateral decubitus position. She was then sedated with the above medications. A rectal examination was performed that was normal. The colonoscope was then passed through the anus into the rectosigmoid and through the descending, transverse, and ascending colon up to the cecum with visualization of the appendiceal orifice, base of the cecum and the ileocecal valve. The colonoscope was then withdrawn. No polyps masses or lesions were seen. There was no colitis. Patient had an adequate bowel prep. She had moderate sigmoid diverticular disease with sigmoid muscular hypertrophy On retroflexion and straight on view she had trace internal hemorrhoids The patient tolerated the procedure well without difficulty. WITHDRAWAL TIME: 8 minutes QUALITY OF THE PREP: [place] Bowel Prep score: 9. COMPLICATIONS : None SPECIMENS: None DISPOSITION: Transfer back to the floor Stable PLAN: 1. Repeat colonoscopy in 10 years 2. Resume GI soft diet advance as tolerated 3. NPO after midnight for CT-guided lung biopsy tomorrow 4. Previous records were left in the chart from the clinic and from BLOSSOM [place] MD October 14, 2024 18:12
[2024-10-14] MEDS: metroNIDAZOLE 500MG/100ML 100 ML IV SCH (21:21)
[2024-10-15 01:00] VITALS: BP 140/71; PULSE 77; RESP 18; TEMP 97.3; O2SAT 95
[2024-10-15 05:00] VITALS: BP 113/58; PULSE 73; RESP 18; TEMP 97.9; O2SAT 97
[2024-10-15] MEDS: LIDOCAINE 2%HCL (LOCAL ANESTH.) INJ 10ml MDV ONE (07:19)
[2024-10-15 07:55] LABS: Basophils # (auto) 0 10 ^3/uL (0-0.2); Basophils % (auto) 0.2 % (0.0-2.0); Eosinophils # (auto) 0 10 ^3/uL (0-0.8); Hematocrit 40.8 % (36.0-46.0); Hemoglobin 13.4 g/dL (12.2-16.2); Lymphocytes # (auto) 1.6 10 ^3/uL (0.4-5.4); Lymphocytes % (auto) 22.3 % (10.0-50.0); Mean Corpuscular Hemoglobin 29.1 pg (28.0-32.0); Mean Corpuscular Volume 88.2 fL (80.0-100.0); Monocytes # (auto) 0.1 10 ^3/uL (0-1.3); Neutrophils # (auto) 5.5 10 ^3/uL (1.6-8.6); Neutrophils % (auto) 75.5 % (37.0-80.0); Nucleated Red Blood Cells % 0.1 %; Platelet Count (auto) 255 10^3/uL (140-450); Red Blood Cells 4.63 10^6/uL (4.0-5.20); Red Cell Distribution Width 14.4 % (11.8-14.3); White Blood Cell 7.2 10^3/uL (4.4-10.8)
[2024-10-15 08:00] VITALS: PULSE 70; RESP 18; O2SAT 98
[2024-10-15 08:01] LABS: INR 0.96 (0.9-1.15); Prothrombin Time 10.2 sec (9.3-11.8)
[2024-10-15 08:05] LABS: Alanine Aminotransferase 22 U/L (7-40); Albumin 3.8 g/dL (3.2-4.8); Alkaline Phosphatase 100 U/L (46-116); Anion Gap 10 (5-15); Aspartate Aminotransferase 16 U/L (13-40); BUN/Creatinine Ratio 12.1 (10.0-20.0); Bilirubin, Total 0.3 mg/dL (0.2-1.0); Calcium 8.7 mg/dL (8.7-10.4); Carbon Dioxide 22 mmol/L (20-31); Potassium 3.9 mmol/L (3.5-5.1); Sodium 140 mmol/L (136-145)
[2024-10-15 08:06] LABS: Blood Urea Nitrogen 7 mg/dL (9-23); Chloride 108 mmol/L (98-107); Glucose 145 mg/dL (74-106)
[2024-10-15] MEDS: MIDAZOLAM HCL 2MG/2ML 2ml VIAL (1mg/ml) IV ONE (08:15)
[2024-10-15] MEDS: fentaNYL CITRATE 100 MCG/2 ML VL IV ONE (08:15)
[2024-10-15 09:00] VITALS: BP 142/88; PULSE 70; RESP 18; TEMP 97.7; O2SAT 98
--- NOTE | 2024-10-15 11:34 | DVH ---
CT CT GUIDED NEEDLEBIOPSY, HISTORY: LUNG BIOPSY PROCEDURE: Informed consent was obtained. The patient was placed prone on the CT scanner. A limited l ocalization CT scan of the lung was obtained. The skin overlying the lesion was prepped with chlorhex idine which was allowed to dry and draped in sterile fashion. Time out was performed. The skin and so ft tissues were infiltrated with Xylocaine, and IV sedation was administered. With intermittent CT gu idance, a 19 gauge Temno outer coaxial guiding needle was attempted to be placed into the lung nodule . It could be be advanced into the lung due to a lack of perctuaneous window. DLP = 912 mGy-cm. SEDATION: Dr. Henok Grewal was personally responsible for the administration of moderate sedation during the procedure performed, including the use of an independent trained observer who had no other duties during the procedure. The drugs utilized were IV fentanyl and versed (see nursing log for details). The total time of supervision by the attending physician was approximately 30 minutes. FINDINGS: Limited CT scan demonstrates an approximately 1 cm soft tissue nodule in the left lower lob e and the biopsy needle unable to be advanced through due to lack of percutaneous window.. IMPRESSION/PLAN: Unsuccessful attempt to biopsy the lower lobe lung nodule due to location and lack of percutaneous wi ndow. Recommend follow up CT in 3-6 months.
[2024-10-15 13:00] VITALS: BP 160/77; PULSE 103; RESP 18; TEMP 98.8; O2SAT 99
[2024-10-15] MEDS ORDERED: SUCR1SUS26 PO (13:39)
--- NOTE | 2024-10-15 13:44 | DVHDS2 ---
Discharge Summary Date of Admission October 10, 2024 at 16:17 Date of Discharge: October 15, 2024 Labs/Diagnostic Data: Laboratory Results Test 10/15/24 07:31 10/10/24 11:51 10/10/24 11:05 White Blood Count 7.2 10^3/uL (4.4-10.8) Red Blood Count 4.63 10^6/uL (4.0-5.20) Hemoglobin 13.4 g/dL (12.2-16.2) Hematocrit 40.8 % (36.0-46.0) Mean Corpuscular Volume 88.2 fL (80.0-100.0) Mean Corpuscular Hemoglobin 29.1 pg (28.0-32.0) Mean Corpuscular Hemoglobin Concent 33.0 g/dL (32.0-36.0) Red Cell Distribution Width 14.4 % (11.8-14.3) Platelet Count 255 10^3/uL (140-450) Mean Platelet Volume 6.9 fL (6.9-10.8) Neutrophils (%) (Auto) 75.5 % (37.0-80.0) Lymphocytes (%) (Auto) 22.3 % (10.0-50.0) Monocytes (%) (Auto) 2.0 % (0.0-12.0) Eosinophils (%) (Auto) 0.0 % (0.0-7.0) Basophils (%) (Auto) 0.2 % (0.0-2.0) Neutrophils # (Auto) 5.5 10 ^3/uL (1.6-8.6) Lymphocytes # (Auto) 1.6 10 ^3/uL (0.4-5.4) Monocytes # (Auto) 0.1 10 ^3/uL (0-1.3) Eosinophils # (Auto) 0 10 ^3/uL (0-0.8) Basophils # (Auto) 0 10 ^3/uL (0-0.2) Nucleated Red Blood Cells 0.1 % Prothrombin Time 10.2 sec (9.3-11.8) Prothrombin Time INR 0.96 (0.9-1.15) Sodium Level 140 mmol/L (136-145) Potassium Level 3.9 mmol/L (3.5-5.1) Chloride Level 108 mmol/L (98-107) Carbon Dioxide Level 22 mmol/L (20-31) Anion Gap 10 (5-15) Blood Urea Nitrogen 7 mg/dL (9-23) Creatinine 0.58 mg/dL (0.550-1.02) Glomerular Filtration Rate Calc 89 mL/min (>90) BUN/Creatinine Ratio 12.1 (10.0-20.0) Serum Glucose 145 mg/dL (74-106) Calcium Level 8.7 mg/dL (8.7-10.4) Total Bilirubin 0.3 mg/dL (0.2-1.0) Aspartate Amino Transferase (AST) 16 U/L (13-40) Alanine Aminotransferase (ALT) 22 U/L (7-40) Alkaline Phosphatase 100 U/L (46-116) Total Protein 7.0 g/dL (5.7-8.2) Albumin 3.8 g/dL (3.2-4.8) Activated Partial Thromboplast Time 22.2 SEC (24.5-34.5) Magnesium Level 2.1 mg/dL (1.6-2.6) Lipase 34 U/L (12-53) Urine Color Light-yellow (Yellow) Urine Clarity Clear (Clear) Urine pH 7.5 (5.0-9.0) Urine Specific [place] 1.010 (1.001-1.035) Urine Protein Negative (Negative) Urine Ketones Negative (Negative) Urine Blood Negative /uL (Negative) Urine Nitrite Negative (Negative) Urine Bilirubin Negative (Negative) Urine Urobilinogen Normal mg/dL (Negative) Urine Leukocyte Esterase Negative /uL (Negative) Urine RBC 1 /hpf (0 - 4) Urine Microscopic WBC < 1 /HPF (0-5) Urine Squamous Epithelial Cells Few /hpf (<5) Urine Bacteria None seen /hpf (None Seen) Urine Glucose Normal mg/dL (Normal) Other Laboratory Tests 10/15/24 07:31 Brief Hx & Hospital Course: 10/12 patient was admitted 10/10, today I am inheriting the case. 83-year-old female presented with abdominal pain. Has history of cholecystectomy, hysterectomy, ovaries still present. Pain X periumbilical associated with nausea. Denies dysuria, fevers. CBC unconcerning. CMP initially unconcerning, on repeat LFTs are rising with ALP rise. CT abdomen and pelvis with some colonic diverticulosis, but concerning for multiple pulmonary nodules, meds possible. Tolerating p.o., abdominal pain appears to be tolerable we will re- evaluate tomorrow. 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 Patient said she has had a colonoscopy here but no recorded colonoscopy in chart records. We will consult GI to eval for abdominal pain and possible source of meds in:, eval for need for colonoscopy. We will consult pulmonology for bilateral metastatic pulmonary disease. Patient is tolerating food better now, abdominal pain is subsiding slowly. 10/14 - GI taking for EGD and colonoscopy today. Radiology consulted by [place] for IR excisional biopsy, likely tomorrow. 10/15 - IR unable to perform biopsy and would like to schedule outpatient. Patient otherwise stable for discharge as per plan below. According to outside records the pulmonary nodules have been present for approximately at least 10 years but may be worsening/growing. Colonoscopy was done without any concerning signs or masses found. EGD also done but with no concerning findings, just her old chronic findings of hiatal hernia etc. patient was tolerating p.o., ambulating, urinating, passing gas. Patient was stable to discharge as per plan below Assessment Intractable abdominal pain resolving Decreased p.o. tolerance resolved PuD possible iv site cellulitis infection Multiple pulmonary nodules Colonic diverticulosis Transaminitis ALP elevated History of GERD requiring EGD dilation Sliding hiatal hernia Grade a erosive esophagitis Plan - continue Protonix - iv site R AC fossa infection, warm compress 2x/day for 5 days and keflex 500mg 2x/day for 5 days. - Start Carafate - outpatient IR biopsy of nodule - continue other home medications not mentioned above - follow up with GI as regularly scheduled -Outpatient scheduling with IR for lung nodule biopsy - outpatient follow up with pulmonology to follow up on lung nodules Condition at Discharge: Fair Final Diagnosis/Problems List Intractable abdominal pain resolving Decreased p.o. tolerance resolved PuD possible Multiple pulmonary nodules Colonic diverticulosis Transaminitis ALP elevated History of GERD requiring EGD dilation Sliding hiatal hernia Grade a erosive esophagitis Discharge Disposition: Home Discharge Statement: "Patient was advised to return to the ER or call 911 if any headaches, dizziness, shortness of breath, chest pain, abdominal pain, bleeding, fevers, or worsening of medical condition. Patient was counseled about treatment plan, medications, possible side effects, patientverbalized understanding. All questions were answered to the best of my ability. This discharge took greater then 30 minutes in planning, reviewing documentation, counseling the patient, and discussing with other team members." ASSESSMENT ASSESSMENT Assessment Date of Service: October 15, 2024 Billing Provider: TIMBO SAEED MD Common Visit Codes: 17968-TXO/OBS DISCH DAY >30min TIMBO SAEED MD October 15, 2024 13:44
[2024-10-15] MEDS ORDERED: CEPH250C PO (16:20)
[2024-10-15 17:00] VITALS: BP 123/72; PULSE 81; RESP 17; TEMP 99; O2SAT 97
--- NOTE | 2024-10-15 17:03 | DVH ---
CHEST RADIOGRAPH Indication: status post lung biopsy procedure Technique: Single frontal view of the chest was obtained Comparison: CHEST PORTABLE on DOS: 08/14/20 FINDINGS: Lines and Tubes: None Lungs: No focal consolidation. Pleura: No effusion. No pneumothorax. Cardiomediastinal contours: Unremarkable Bones: No acute osseous abnormality. IMPRESSION: 1. No acute cardiopulmonary disease.
--- NOTE | 2024-10-15 22:11 | DVHPN2 ---
Progress Note - Dictate Date Seen: October 15, 2024 Has the PT tested + for MRSA If YES, has PT been informed?: No Medical Necessity Reason Pt with a Central, PICC or Fol: No vital signs Vital Sign Date Time Temp Pulse Resp B/P (MAP) Pulse Ox O2 Delivery O2 Flow Rate FiO2 10/15/24 17:00 99.0 81 17 123/72 (89) 97 99.0 10/15/24 08:00 Room Air* 0 21 Total Intake and Output 10/14/24 10/14/24 10/15/24 15:00 23:00 07:00 Intake Total 489 ml 550 ml 100 ml Balance 489 ml 550 ml 100 ml laboratory and microbiology Laboratory Tests 10/15/24 07:31 Test 10/15/24 07:31 Range/Units Serum Glucose 145 H 74-106 mg/dL Assessment/Plan Impression Acute hypoxemic respiratory failure Pulmonary nodules Abdominal pain Atelectasis Patient seen and examined Events Low oxygen requirements On 2 liters nasal cannula No distress Lung biopsy attempted by IR however procedure unsuccessful Labs and imaging reviewed CT of the chest shows several bilateral pulmonary nodules measuring up to 1.5 cm Management continue supportive care Bronchodilators Monitor renal function Monitor electrolytes Supplement as needed Pain control Avoid oversedation Okay to discharge from pulmonary standpoint Recommend PET scan DVT prophylaxis Plan discussed with: Patient SULEMA MCKENNA MD October 15, 2024 22:11
== END 2024-10-15 19:05 | disposition home or self-care (01) | DRG 383 ==
LOC: ER 10:46 → OVERFLOW 16:17 → EAST 18:21
PROVIDERS: ADMIT Student in an Organized Health Care Education/Training Program; ATTEND Student in an Organized Health Care Education/Training Program
PROC: 0DB68ZX Excision of Stomach, Via Natural or Artificial Opening Endoscopic, Diagnostic (ICD-10-PCS; principal; 2024-10-14 17:32)
PROC: 0DJD8ZZ Inspection of Lower Intestinal Tract, Via Natural or Artificial Opening Endoscopic (ICD-10-PCS; 2024-10-14 17:32)
PROC: 0BBJ3ZX Excision of Left Lower Lung Lobe, Percutaneous Approach, Diagnostic (ICD-10-PCS; 2024-10-15)
DX: K27.9 Peptic ulcer, site unspecified, unspecified as acute or chronic, without hemorrhage or perforation (principal); J96.01 Acute respiratory failure with hypoxia; T80.29XA Infection following other infusion, transfusion and therapeutic injection, initial encounter; K21.00 Gastro-esophageal reflux disease with esophagitis, without bleeding; K29.70 Gastritis, unspecified, without bleeding; K57.30 Diverticulosis of large intestine without perforation or abscess without bleeding; K64.8 Other hemorrhoids; K44.9 Diaphragmatic hernia without obstruction or gangrene; I10 Essential (primary) hypertension; R91.8 Other nonspecific abnormal finding of lung field; F41.9 Anxiety disorder, unspecified; R74.01 Elevation of levels of liver transaminase levels; M62.89 Other specified disorders of muscle; Z88.0 Allergy status to penicillin; Z88.6 Allergy status to analgesic agent; Z88.8 Allergy status to other drugs, medicaments and biological substances; Z88.1 Allergy status to other antibiotic agents; Z79.1 Long term (current) use of non-steroidal anti-inflammatories (NSAID); Z79.899 Other long term (current) drug therapy; Z90.49 Acquired absence of other specified parts of digestive tract; Z90.710 Acquired absence of both cervix and uterus; Z83.3 Family history of diabetes mellitus; Z82.49 Family history of ischemic heart disease and other diseases of the circulatory system; Y84.8 Other medical procedures as the cause of abnormal reaction of the patient, or of later complication, without mention of misadventure at the time of the procedure; Y92.238 Other place in hospital as the place of occurrence of the external cause
CPT/HCPCS: 10005; 36415; 43239; 45378; 71045; 71046; 71250; 71260; 74177; 76881; 77012; 80053; 81001; 83690; 83735; 85025; 85610; 85730; 93005; 96361; 96374; 96375; G0378; J1100; J1885; J2003; J2250; J2405; J2470; J2704; J3490

== ENCOUNTER → 2025-03-11 | Outpatient (CLI) | payer OTHER ==
[~2025-03-11] MED LIST changes: +CEPH250C PO; +SUCR1SUS26 PO
[2025-03-11 09:08] LABS: Hematocrit 43.3 % (36.0-46.0); Hemoglobin 14.2 g/dL (12.2-16.2); Mean Corpuscular Hemoglobin 29.2 pg (28.0-32.0); Mean Corpuscular Volume 88.9 fL (80.0-100.0); Nucleated Red Blood Cells % 0.0 %
[2025-03-11 09:23] LABS: INR 0.95 (0.9-1.15); Prothrombin Time 10.1 sec (9.3-11.8)
[2025-03-11 09:33] LABS: Albumin 3.9 g/dL (3.2-4.8); Alkaline Phosphatase 91 U/L (46-116); Anion Gap 9 (5-15); BUN/Creatinine Ratio 10.4 (10.0-20.0); Calcium 9.1 mg/dL (8.7-10.4); Carbon Dioxide 28 mmol/L (20-31); Chloride 104 mmol/L (98-107); Potassium 4.7 mmol/L (3.5-5.1); Sodium 141 mmol/L (136-145); Total Protein 7.5 g/dL (5.7-8.2)
[2025-03-11 09:34] LABS: Alanine Aminotransferase < 9 U/L (7-40); Bilirubin, Total 0.5 mg/dL (0.2-1.0); Blood Urea Nitrogen 8 mg/dL (9-23); Glucose 114 mg/dL (74-106)
== END | disposition home or self-care (01) ==
LOC: LAB 08:45
PROVIDERS: ATTEND Internal Medicine
DX: Z01.818 Encounter for other preprocedural examination (principal)
CPT/HCPCS: 36415; 80053; 85025; 85610

== ENCOUNTER 2025-03-17 10:46 | Outpatient (CLI) | payer OTHER ==
--- NOTE | 2025-03-17 12:08 | DVH ---
US US GUIDANCE FOR NEEDLE PLACEME, HISTORY: THYROID NODULE PROCEDURE: An informed consent was obtained. Limited localization ultrasound of the thyroid gland was obtained. The right neck base was prepped with chlorhexidine which was allowed to dry and draped in the usual sterile fashion. Timeout was performed. The skin and soft tissues were infiltrated with 1% Xylocaine. With ultrasound guidance, multiple core biopsies of the nodule were obtained using an 18 g auge Biopince. The neck was cleaned and a sterile band-aid applied. The specimens were sent to [facility] for analysis. No immediate complication was identified. FINDINGS: Sold right thyroid nodule. Limited ultrasound of the thyroid during the biopsy demonstrates biopsy needle within nodule. IMPRESSION: Ultrasound guided core biopsy of right thyroid nodule.
== END 2025-03-17 17:00 | disposition home or self-care (01) ==
LOC: XYW 10:46
PROVIDERS: ATTEND Internal Medicine
DX: E04.1 Nontoxic single thyroid nodule (principal); E07.9 Disorder of thyroid, unspecified; R91.1 Solitary pulmonary nodule; I12.9 Hypertensive chronic kidney disease with stage 1 through stage 4 chronic kidney disease, or unspecified chronic kidney disease; N18.9 Chronic kidney disease, unspecified; K21.9 Gastro-esophageal reflux disease without esophagitis; F33.1 Major depressive disorder, recurrent, moderate; Z79.82 Long term (current) use of aspirin; Z79.899 Other long term (current) drug therapy; Z88.5 Allergy status to narcotic agent; Z88.8 Allergy status to other drugs, medicaments and biological substances
CPT/HCPCS: 60100; 76942